=== PATIENT | male | born 1935 | race Caucasian/White ===

== ENCOUNTER 2017-02-21 16:56 | Emergency (ER) | payer OTHER ==
[2017-02-21 17:01] VITALS: BMI 26.4
[2017-02-21 18:42] LABS: BASOPHIL 1.2 % (0-2.0); EOSINOPHIL 1.7 % (0-4.5); MCH 31.7 pg (25.7-33.7); MCHC 33.6 g/dl (32.0-35.9); MEAN CELL VOLUME 94.5 fl (80-96); MEAN PLT VOLUME 9.8 fl (7.5-11.1); PLATELET COUNT 182 K/MM3 (134-434); RDW 13.2 % (11.9-15.9); WHITE BLOOD COUNT 10.1 K/mm3 (4.0-10.0)
[2017-02-21 19:03] LABS: ALBUMIN 3.8 g/dl (3.4-5.0); ALK PHOS 85 U/L (45-117); ANION GAP 7 (8-16); BILIRUBIN,TOTAL 0.6 mg/dL (0.2-1.0); CALCIUM 9.1 mg/dL (8.5-10.1); CO2 25 mmol/L (21-32); CREATININE 0.9 mg/dL (0.7-1.3); GLUCOSE,RANDOM 99 mg/dL (74-106); SGPT/ALT 27 U/L (12-78); TOT PROT 7.2 g/dl (6.4-8.2)
[2017-02-21 19:08] LABS: URINE APPEARANCE SLCLOUDY; URINE BILIRUBIN NEGATIVE (NEGATIVE); URINE COLOR YELLOW; URINE GLUCOSE (UA) NEGATIVE (NEGATIVE); URINE KETONE NEGATIVE (NEGATIVE); URINE NITRITE POSITIVE (NEGATIVE); URINE UROBILINOGEN NEGATIVE E.U./dl (0.2-1.0)
[2017-02-21 19:20] LABS: URINE BLOOD 3+ (NEGATIVE); URINE LEUK ESTERASE 3+ (NEGATIVE); URINE PROTEIN 2+ (NEGATIVE)
[2017-02-21 19:22] LABS: URINE BACTERIA RARE /hpf (NONE SEEN); URINE RBC 134 /hpf (0-3); URINE WBC 276 /hpf (3-5)
[2017-02-21 19:23] LABS: URINE HYALINE CAST 2 /lpf
[2017-02-21 19:31] LABS: SGOT/AST 32 U/L (15-37)
--- NOTE | 2017-02-21 20:04 | PDOC ---
Attending Attestation - Resident Resident Name: Ryan Shahid - ED Attending Attestation I have performed the following: I have examined & evaluated the patient, The case was reviewed & discussed with the resident, I agree w/resident's findings & plan, Exceptions are as noted - HPI HPI: 02/21/17 20:02 82 yo male wit h/o HTN prior prostate CA treated 4 yrs ago, here today with 2 days hematuria. pt states has had blood in urine stream for 2 days. sometmes has clots. drank lots of water to resolve. does have dysuria. no f/c no flank pain. no lightheaded. no other complaints. has followed with DR gusman urologist in the past at [facility], but called him today and he no longer take his insurance ( medicare). pt also see pcp dr. Spangler, and dr Salas [employer]. - Physicial Exam PE: 02/21/17 20:03 on exam pt awake alert. lungs clear. heart regular no m/r/g. abd soft nt nd. no cva tenderness. ext wwp . no edema nuero moves all ext alet oriented x 3 - Medical Decision Making 02/21/17 20:04 82 yo h/o prostate CA with hematuria. : differential uti, renal cyst, recurrent ca, anemia renal failure. plna cbc lytes ua cultures. ct a/p
[2017-02-21] MEDS ORDERED: CEFTRIAXONE 1 GM in DEXTROSE 5%-WATER - 50 ML IVPB ONE (20:05)
[2017-02-21] MEDS ORDERED: CEFTRIAXONE 50 ML ONE (20:15)
--- NOTE | 2017-02-21 20:23 | PDOC ---
*Physical Exam - Vital Signs Last Vital Signs Temp Pulse Resp BP Pulse Ox 98.0 F 101 H 20 166/100 96 02/21/17 16:57 02/21/17 16:57 02/21/17 16:57 02/21/17 16:57 02/21/17 16:57 <Mal Gilbert - Last Filed: 02/21/17 20:18> - Vital Signs Last Vital Signs Temp Pulse Resp BP Pulse Ox 98.0 F 101 H 20 166/100 96 02/21/17 16:57 02/21/17 16:57 02/21/17 16:57 02/21/17 16:57 02/21/17 16:57 <Isela Rincon - Last Filed: 02/21/17 20:32> ED Treatment Course - LABORATORY CBC & Chemistry Diagram: 02/21/17 18:18 02/21/17 18:18 - ADDITIONAL ORDERS Additional order review: Laboratory Results 02/21/17 02/21/17 18:18 18:18 Sodium 139 Potassium 4.3 Chloride 107 Carbon Dioxide 25 Anion Gap 7 L BUN 17 Creatinine 0.9 Creat Clearance w eGFR > 60 Random Glucose 99 Calcium 9.1 Total Bilirubin 0.6 AST 32 D ALT 27 Alkaline Phosphatase 85 Total Protein 7.2 Albumin 3.8 Urine Color Yellow Urine Appearance Slcloudy Urine pH 5.0 Urine Protein 2+ H Urine Glucose (UA) Negative Urine Ketones Negative Urine Blood 3+ H Urine Nitrite Positive Urine Bilirubin Negative Urine Urobilinogen Negative Ur Leukocyte Esterase 3+ H Urine RBC 134 Urine WBC 276 Ur Epithelial Cells Rare Urine Crystals Few Urine Bacteria Rare Urine Casts 2 Hyaline Casts 2 02/21/17 18:18 RBC 4.36 MCV 94.5 MCHC 33.6 RDW 13.2 MPV 9.8 Neutrophils % 66.0 Lymphocytes % 21.4 D Monocytes % 9.7 Eosinophils % 1.7 Basophils % 1.2 <Mal Gilbert - Last Filed: 02/21/17 20:18> - LABORATORY CBC & Chemistry Diagram: 02/21/17 18:18 02/21/17 18:18 - ADDITIONAL ORDERS Additional order review: Laboratory Results 02/21/17 02/21/17 18:18 18:18 Sodium 139 Potassium 4.3 Chloride 107 Carbon Dioxide 25 Anion Gap 7 L BUN 17 Creatinine 0.9 Creat Clearance w eGFR > 60 Random Glucose 99 Calcium 9.1 Total Bilirubin 0.6 AST 32 D ALT 27 Alkaline Phosphatase 85 Total Protein 7.2 Albumin 3.8 Urine Color Yellow Urine Appearance Slcloudy Urine pH 5.0 Urine Protein 2+ H Urine Glucose (UA) Negative Urine Ketones Negative Urine Blood 3+ H Urine Nitrite Positive Urine Bilirubin Negative Urine Urobilinogen Negative Ur Leukocyte Esterase 3+ H Urine RBC 134 Urine WBC 276 Ur Epithelial Cells Rare Urine Crystals Few Urine Bacteria Rare Urine Casts 2 Hyaline Casts 2 02/21/17 18:18 RBC 4.36 MCV 94.5 MCHC 33.6 RDW 13.2 MPV 9.8 Neutrophils % 66.0 Lymphocytes % 21.4 D Monocytes % 9.7 Eosinophils % 1.7 Basophils % 1.2 - RADIOLOGY Radiology Studies Ordered: Category Date Time Status ABDOMEN & PELVIS CT W/O CONTR [CT] Stat CT Scan 02/21/17 18:08 Completed <Isela Rincon - Last Filed: 02/21/17 20:32> Progress Note - Progress Note Progress Note: Received sign out from Dr. Shahid. Patient 82 year old male with a history of prostate cancer s/p radiation 3 years ago who presents with a 3 day history of hemuturia and pain on urination. Patient's UA shows leuk esterase and nitrites. Patient's CBC shows a elevated WBC to 10.3. CT abdomen shows possible cystitis. Consider antibiotic treatment and nephrology consult. <Mal Gilbert - Last Filed: 02/21/17 20:18> *DC/Admit/Observation/Transfer <Mal Gilbert - Last Filed: 02/21/17 20:18> - Discharge Dispostion Admit: No <Isela Rincon - Last Filed: 02/21/17 20:32> Diagnosis at time of Disposition: Urinary tract infection - Discharge Dispostion Disposition: HOME Condition at time of disposition: Improved - Prescriptions Prescriptions: Cephalexin [Keflex] 500 mg PO TID #21 capsule - Referrals Referrals: Clifton Yee MD., MD [Staff Physician] - - Patient Instructions Printed Discharge Instructions: Urinary Tract Infection, Blood in Urine Additional Instructions: you need to take keflex 500 mg three times daily for 7 days. return for fever, vomiting or any concern. you need to follow up with a urologist for further evaluation of your bladder, blood in urine and kidneys. call DR Yee, urologist to schedule followup. see referrl number for followup. return for any problems or concerns.
[2017-02-21 20:30] VITALS: BP 164/89; PULSE 77; TEMP 97.6
--- NOTE | 2017-02-21 20:37 | PDOC ---
History of Present Illness - General Chief Complaint: Hematuria Stated Complaint: PCP SENT/ BLOOD CLOTS Time Seen by Provider: 02/21/17 17:26 History Source: Patient Exam Limitations: No Limitations - History of Present Illness Initial Comments: 82yo male with pmh TIA on Plavix of prostate cancer s/p radiation on Flomax 3 years ago presents with 3 days of hematuria with clots and dysuria at the end of urination. Last urologist Dr. Luque - Last primary: Dr Lam. 02/21/17 20:31 Timing/Duration: other (2-3 days) Severity: mild Modifying Factors: improves with: other (symptoms less severe with hydration) Past History - Travel Traveled outside of the country in the last 30 days: No - Past Medical History Allergies/Adverse Reactions: Allergies Allergy/AdvReac Type Severity Reaction Status Date / Time No Known Drug Allergies Allergy Verified 02/21/17 17:00 Home Medications: Ambulatory Orders Atorvastatin Ca [Lipitor -] 80 mg PO ACDIN 08/03/15 Clopidogrel Bisulfate [Plavix -] 75 mg PO DAILY 08/03/15 Metoprolol Succinate [Toprol Xl] 100 mg PO ACDIN 08/03/15 Tamsulosin HCl 0.4 mg PO DAILY 08/03/15 Cephalexin [Keflex] 500 mg PO TID #21 capsule 02/21/17 Cancer: Yes (PROSTATE) Cardiac Disorders: Yes (STENT) CVA: Yes (TIA) HTN: Yes Hypercholesterolemia: Yes - Surgical History Cardiac Surgery: Yes (1 stent) Neurologic Surgery: Yes (KNEE) Orthopedic Surgery: Yes (ARTHROSCOPY LEFT) - Psycho/Social/Smoking Cessation Hx Anxiety: No Suicidal Ideation: No Smoking History: Former smoker Have you smoked in the past 12 months: No If you are a former smoker, when did you quit?: 40 YRS Information on smoking cessation initiated: No Hx Alcohol Use: No Drug/Substance Use Hx: No Substance Use Type: None *Physical Exam - Vital Signs Last Vital Signs Temp Pulse Resp BP Pulse Ox 97.6 F 77 20 164/89 96 02/21/17 20:28 02/21/17 20:28 02/21/17 20:28 02/21/17 20:28 02/21/17 16:57 - Physical Exam General Appearance: Yes: Nourished, Appropriately Dressed HEENT: positive: EOMI, DOTTIE, Normal Voice, Pharynx Normal ED Treatment Course - LABORATORY CBC & Chemistry Diagram: 02/21/17 18:18 02/21/17 18:18 - ADDITIONAL ORDERS Additional order review: Laboratory Results 02/21/17 02/21/17 18:18 18:18 Sodium 139 Potassium 4.3 Chloride 107 Carbon Dioxide 25 Anion Gap 7 L BUN 17 Creatinine 0.9 Creat Clearance w eGFR > 60 Random Glucose 99 Calcium 9.1 Total Bilirubin 0.6 AST 32 D ALT 27 Alkaline Phosphatase 85 Total Protein 7.2 Albumin 3.8 Urine Color Yellow Urine Appearance Slcloudy Urine pH 5.0 Urine Protein 2+ H Urine Glucose (UA) Negative Urine Ketones Negative Urine Blood 3+ H Urine Nitrite Positive Urine Bilirubin Negative Urine Urobilinogen Negative Ur Leukocyte Esterase 3+ H Urine RBC 134 Urine WBC 276 Ur Epithelial Cells Rare Urine Crystals Few Urine Bacteria Rare Urine Casts 2 Hyaline Casts 2 02/21/17 18:18 RBC 4.36 MCV 94.5 MCHC 33.6 RDW 13.2 MPV 9.8 Neutrophils % 66.0 Lymphocytes % 21.4 D Monocytes % 9.7 Eosinophils % 1.7 Basophils % 1.2 Medical Decision Making - Medical Decision Making 82 yo h/o prostate CA with hematuria. : cbc and electrolytes drawn, revealed increased WBC suggesting uti, Ct a/p ordered to r/o urolithiasis, revealed renal cyst, possible recurrent prostate cancer, RBC casts for possible renal failure. Patient D/C on Keflex. Advised to follow up with Urologist Dr. Yee for further evaluation of kidneys/bladder *DC/Admit/Observation/Transfer Diagnosis at time of Disposition: Urinary tract bacterial infections, UTI (urinary tract infection) - Prescriptions Prescriptions: Cephalexin [Keflex] 500 mg PO TID #21 capsule
== END 2017-02-21 20:50 | disposition home or self-care (01) ==
LOC: JER 16:56
DX: N39.0 Urinary tract infection, site not specified (principal); B96.89 Other specified bacterial agents as the cause of diseases classified elsewhere; Z86.73 Personal history of transient ischemic attack (TIA), and cerebral infarction without residual deficits; Z85.46 Personal history of malignant neoplasm of prostate; Z79.01 Long term (current) use of anticoagulants; I25.10 Atherosclerotic heart disease of native coronary artery without angina pectoris; I25.83 Coronary atherosclerosis due to lipid rich plaque; I10 Essential (primary) hypertension; Z95.5 Presence of coronary angioplasty implant and graft; E78.00 Pure hypercholesterolemia, unspecified
CPT/HCPCS: 36415; 74176-TC; 80053; 81003; 81015; 85025; 87086; 87186; 96365; 99283-25

== ENCOUNTER 2021-12-12 21:01 | Emergency (ER) | payer OTHER ==
[2021-12-12 21:13] VITALS: TEMP 97.8; BMI 27.3
[2021-12-12] MEDS ORDERED: LIDOCAINE HCL 2% JELLY 10 ML CARTRIDGE ONE ×3 (21:45→23:02)
[2021-12-12 22:40] LABS: BASO % 0.4 % (0-2.0); EOS % 0.1 % (0-4.5); HEMATOCRIT 40.2 % (35.4-49); HEMOGLOBIN 13.6 GM/dL (11.7-16.9); LYMPH % 9.3 % (8-40); MCH 31.8 pg (25.7-33.7); MCHC 33.8 g/dl (32.0-35.9); MEAN CELL VOLUME 94.2 fl (80-96); MEAN PLT VOLUME 9.1 fl (7.5-11.1); MONO % 6.9 % (3.8-10.2); NEUT % 83.3 % (42.8-82.8); PLATELET COUNT 231 10^3/uL (134-434); RBC 4.27 M/mm3 (4.00-5.60); RDW 13.2 % (11.9-15.9); WHITE BLOOD COUNT 11.5 K/mm3 (4.0-10.0)
[2021-12-12 22:46] LABS: INR 0.95 (0.83-1.09); PROTHROMBIN TIME (PATIENT) 10.9 SEC (9.7-13.0)
[2021-12-12 22:48] LABS: ACTIVATED PTT 30.3 SECONDS (25.2-36.5)
[2021-12-12 23:01] LABS: CALCIUM 9.7 mg/dL (8.5-10.1)
[2021-12-12 23:03] LABS: ALBUMIN 3.9 g/dl (3.4-5.0); BLOOD UREA NITROGEN 26.1 mg/dL (7-18)
[2021-12-12 23:06] LABS: CREATININE 1.1 mg/dL (0.55-1.3)
[2021-12-12 23:07] LABS: BILIRUBIN,TOTAL 0.5 mg/dL (0.2-1)
[2021-12-12] MEDS ORDERED: LIDOCAINE HCL 2% JELLY 10 ML CARTRIDGE UR ONE (23:13)
[2021-12-12] MEDS ORDERED: SULFAMETHOXAZOLE/TRIMETHOPRIM 800MG/160MG D.S. TABLET PO ONE (23:24)
[2021-12-12 23:35] VITALS: BP 165/115; PULSE 113
[2021-12-13] MEDS ORDERED: SULFAMETHOXAZOLE/TRIMETHOPRIM 800MG/160MG D.S. TABLET ONE (00:06)
[2021-12-13] MEDS ORDERED: CEPHALEXIN MONOHYDRATE 500 MG CAPSULE (UD) PO ONE (00:15)
[2021-12-13] MEDS ORDERED: CEPHALEXIN MONOHYDRATE 500 MG CAPSULE (UD) ONE (00:17)
== END 2021-12-13 00:56 | disposition home or self-care (01) ==
LOC: JER 21:01
DX: R33.9 Retention of urine, unspecified (principal)
CPT/HCPCS: 36415; 80053; 85025; 85610; 85730; 93005; 93010; 99284-25

== ENCOUNTER 2021-12-17 12:00 | Inpatient (IN) | payer OTHER ==
[2021-12-17] MEDS ORDERED: ACETAMINOPHEN INJECTION 100 ML IVPB ONE (13:19)
[2021-12-17] MEDS ORDERED: ACETAMINOPHEN 1000 MG/100 ML BAG IVPB ONE ×2 (13:19→22:33)
[2021-12-17 13:47] LABS: BASO % 0.8 % (0-2.0); EOS % 0.1 % (0-4.5); HEMATOCRIT 37.9 % (35.4-49); HEMOGLOBIN 12.8 GM/dL (11.7-16.9); LYMPH % 9.4 % (8-40); MCHC 33.9 g/dl (32.0-35.9); MEAN CELL VOLUME 94.4 fl (80-96); MEAN PLT VOLUME 9.7 fl (7.5-11.1); MONO % 5.8 % (3.8-10.2); NEUT % 83.9 % (42.8-82.8); PLATELET COUNT 253 10^3/uL (134-434); RBC 4.01 M/mm3 (4.00-5.60); RDW 13.1 % (11.9-15.9); WHITE BLOOD COUNT 12.5 K/mm3 (4.0-10.0)
[2021-12-17 13:53] LABS: INR 1.01 (0.83-1.09); PROTHROMBIN TIME (PATIENT) 11.6 SEC (9.7-13.0)
[2021-12-17 13:55] LABS: ACTIVATED PTT 30.6 SECONDS (25.2-36.5)
[2021-12-17 14:04] LABS: ALBUMIN 3.7 g/dl (3.4-5.0); BLOOD UREA NITROGEN 22.2 mg/dL (7-18); CALCIUM 9.8 mg/dL (8.5-10.1)
[2021-12-17 14:09] LABS: BILIRUBIN,TOTAL 0.6 mg/dL (0.2-1)
[2021-12-17 14:36] LABS: EPI CELLS 1 /uL (0-25.1); HYALINE CASTS 0 /uL (0-3.1); URINE APPEARANCE CLEAR; URINE BILIRUBIN 2+ (NEGATIVE); URINE COLOR RED; URINE GLUCOSE (UA) NEGATIVE (NEGATIVE); URINE KETONE NEGATIVE (NEGATIVE); URINE LEUK ESTERASE 1+ (NEGATIVE); URINE NITRITE POSITIVE (NEGATIVE); URINE PROTEIN 4+ (NEGATIVE); URINE UROBILINOGEN 0.2 mg/dL (0.2-1.0); URINE WBC 1 /uL (0-25.8)
[2021-12-17] MEDS ORDERED: KETOROLAC TROMETHAMINE 15 MG/ML VIAL IVPUSH ONE (15:14)
[2021-12-17] MEDS ORDERED: KETOROLAC TROMETHAMINE 15 MG/ML VIAL ONE (15:24)
[2021-12-17 15:54] LABS: URINE RBC 79.1 /uL (0-23.9); YEAST NONE SEEN (NEGATIVE)
[2021-12-17] MEDS ORDERED: CEFTRIAXONE 1 GM in DEXTROSE 5%-WATER - 50 ML IVPB ONE (16:10)
[2021-12-17] MEDS ORDERED: SODIUM CHLORIDE 1,000 ML IV SCH (16:30)
[2021-12-17] MEDS ORDERED: CEFTRIAXONE 1 GM/50 ML BAG ONE (16:50)
[2021-12-17] MEDS ORDERED: ATORVASTATIN CA 80 MG TABLET (FP) ONE (16:50)
[2021-12-17] MEDS: ATORVASTATIN CA 80 MG TABLET (FP) PO SCH (16:57)
[2021-12-17 18:15] VITALS: BMI 27.2
[2021-12-18] MEDS: LACTATED RINGERS SOLUTION 1,000 ML IV SCH ×3 (02:40→18:56)
[2021-12-18] MEDS ORDERED: ACETAMINOPHEN 1000 MG/100 ML BAG IVPB ONE (06:45)
[2021-12-18] MEDS: TAMSULOSIN HCL 0.4 MG CAP PO SCH (08:29)
[2021-12-18] MEDS: KETOROLAC TROMETHAMINE 15 MG/ML VIAL IVPUSH PRN ×2 (08:29→18:58)
[2021-12-18] MEDS ORDERED: cefTRIAXone SODIUM 1 GM VIAL ONE (09:10)
[2021-12-18] MEDS ORDERED: DEXTROSE 5%-WATER - 50 ML IVPB ONE (09:10)
[2021-12-18 09:33] LABS: BASO % 0.7 % (0-2.0); HEMATOCRIT 32.2 % (35.4-49); HEMOGLOBIN 11.2 GM/dL (11.7-16.9); LYMPH % 17.4 % (8-40); MCH 32.5 pg (25.7-33.7); MCHC 34.8 g/dl (32.0-35.9); MEAN CELL VOLUME 93.6 fl (80-96); MEAN PLT VOLUME 8.9 fl (7.5-11.1); MONO % 7.8 % (3.8-10.2); NEUT % 72.1 % (42.8-82.8); PLATELET COUNT 229 10^3/uL (134-434); RBC 3.44 M/mm3 (4.00-5.60); WHITE BLOOD COUNT 8.5 K/mm3 (4.0-10.0)
[2021-12-18] MEDS: LOSARTAN POTASSIUM 50 MG TABLET PO SCH (09:37)
[2021-12-18] MEDS: CEFTRIAXONE 1 GM in DEXTROSE 5%-WATER - 50 ML IVPB SCH (09:37)
[2021-12-18 09:56] LABS: CALCIUM 8.6 mg/dL (8.5-10.1); MAGNESIUM 1.9 mg/dL (1.8-2.4)
[2021-12-18 09:57] LABS: BLOOD UREA NITROGEN 19.2 mg/dL (7-18)
[2021-12-18 10:00] LABS: CREATININE 0.9 mg/dL (0.55-1.3); PHOSPHOROUS 2.6 mg/dL (2.5-4.9)
[2021-12-18 10:01] LABS: INR 1.04 (0.83-1.09)
[2021-12-18] MEDS: OXYBUTYNIN CHLORIDE 5 MG TABLET PO SCH (10:23)
[2021-12-18] MEDS ORDERED: ACETAMINOPHEN 325 MG TABLET (FP) PO PRN (11:38)
[2021-12-18] MEDS: ATORVASTATIN CA 80 MG TABLET (FP) PO SCH (17:29)
[2021-12-18] MEDS ORDERED: LIDOCAINE HCL 2% JELLY 10 ML CARTRIDGE UR ONE (21:43)
[2021-12-18] MEDS ORDERED: hydrOXYzine PAMOATE 25 MG CAPSULE (FP) PO ONE (23:59)
[2021-12-19] MEDS: LACTATED RINGERS SOLUTION 1,000 ML IV SCH ×2 (02:45→16:59)
[2021-12-19] MEDS: KETOROLAC TROMETHAMINE 15 MG/ML VIAL IVPUSH PRN ×2 (05:27→12:09)
[2021-12-19] MEDS ORDERED: DEXTROSE 5%-WATER - 50 ML IVPB ONE (08:56)
[2021-12-19] MEDS ORDERED: cefTRIAXone SODIUM 1 GM VIAL ONE (08:56)
[2021-12-19] MEDS: TAMSULOSIN HCL 0.4 MG CAP PO SCH (09:05)
[2021-12-19] MEDS: OXYBUTYNIN CHLORIDE 5 MG TABLET PO SCH (09:05)
[2021-12-19] MEDS: LOSARTAN POTASSIUM 50 MG TABLET PO SCH (09:05)
[2021-12-19] MEDS: CEFTRIAXONE 1 GM in DEXTROSE 5%-WATER - 50 ML IVPB SCH (09:06)
[2021-12-19] MEDS ORDERED: KETOROLAC TROMETHAMINE 15 MG/ML VIAL IVPUSH ONE (09:30)
[2021-12-19 09:32] LABS: BASO % 0.9 % (0-2.0); EOS % 1.9 % (0-4.5); HEMATOCRIT 34.8 % (35.4-49); HEMOGLOBIN 12.3 GM/dL (11.7-16.9); LYMPH % 22.3 % (8-40); MCH 32.7 pg (25.7-33.7); MCHC 35.4 g/dl (32.0-35.9); MEAN CELL VOLUME 92.4 fl (80-96); MEAN PLT VOLUME 8.8 fl (7.5-11.1); MONO % 6.8 % (3.8-10.2); NEUT % 68.1 % (42.8-82.8); PLATELET COUNT 235 10^3/uL (134-434); RBC 3.76 M/mm3 (4.00-5.60); RDW 13.1 % (11.9-15.9); WHITE BLOOD COUNT 10.3 K/mm3 (4.0-10.0)
[2021-12-19 09:39] LABS: INR 0.99 (0.83-1.09); PROTHROMBIN TIME (PATIENT) 11.4 SEC (9.7-13.0)
[2021-12-19] MEDS ORDERED: ACETAMINOPHEN 1000 MG/100 ML BAG IVPB ONE (12:07)
[2021-12-19] MEDS ORDERED: LISINOPRIL 5 MG TABLET PO ONE (12:18)
[2021-12-19] MEDS ORDERED: amLODIPine BESYLATE 5 MG TABLET (FP) PO ONE (12:20)
[2021-12-19 12:29] LABS: CALCIUM 9.3 mg/dL (8.5-10.1)
[2021-12-19 12:30] LABS: ALBUMIN 3.2 g/dl (3.4-5.0); BLOOD UREA NITROGEN 16.1 mg/dL (7-18); MAGNESIUM 2.2 mg/dL (1.8-2.4)
[2021-12-19 12:34] LABS: BILIRUBIN,TOTAL 0.5 mg/dL (0.2-1)
[2021-12-19] MEDS ORDERED: MIDAZOLAM HCL 2 MG/2 ML SINGLE DOSE VIAL ONE (13:58)
[2021-12-19] MEDS ORDERED: GENTAMICIN 80MG PREMIX BAG IVPB ONE (14:05)
[2021-12-19] MEDS ORDERED: GENTAMICIN SO4 80 MG/2 ML VIAL ONE (14:53)
[2021-12-19] MEDS ORDERED: DEXAMETHASONE SOD PHOSPHATE 4 MG/1 ML VIAL ONE (14:53)
[2021-12-19] MEDS ORDERED: LACTATED RINGERS SOLUTION 1,000 ML IV SCH (15:08)
[2021-12-19] MEDS ORDERED: ACETAMINOPHEN 325 MG TABLET (FP) PO PRN (15:08)
[2021-12-19] MEDS ORDERED: KETOROLAC TROMETHAMINE 15 MG/ML VIAL IVPUSH PRN (15:08)
[2021-12-19] MEDS ORDERED: ONDANSETRON 4 MG/2 ML VIAL IVPUSH PRN (15:11)
[2021-12-19] MEDS: ATORVASTATIN CA 80 MG TABLET (FP) PO SCH (16:33)
[2021-12-20] MEDS: LACTATED RINGERS SOLUTION 1,000 ML IV SCH (03:40)
[2021-12-20] MEDS ORDERED: DEXTROSE 5%-WATER - 50 ML IVPB ONE (09:00)
[2021-12-20] MEDS ORDERED: cefTRIAXone SODIUM 1 GM VIAL ONE (09:00)
[2021-12-20] MEDS: CEFTRIAXONE 1 GM in DEXTROSE 5%-WATER - 50 ML IVPB SCH (09:06)
[2021-12-20] MEDS: TAMSULOSIN HCL 0.4 MG CAP PO SCH (09:06)
[2021-12-20] MEDS: LOSARTAN POTASSIUM 50 MG TABLET PO SCH (09:06)
[2021-12-20] MEDS: amLODIPine BESYLATE 5 MG TABLET (FP) PO SCH (09:06)
[2021-12-20 09:13] LABS: BASO % 0.9 % (0-2.0); EOS % 3.5 % (0-4.5); HEMATOCRIT 35.7 % (35.4-49); HEMOGLOBIN 12.2 GM/dL (11.7-16.9); LYMPH % 20.4 % (8-40); MCH 31.8 pg (25.7-33.7); MCHC 34.2 g/dl (32.0-35.9); MEAN CELL VOLUME 93.1 fl (80-96); MEAN PLT VOLUME 8.8 fl (7.5-11.1); NEUT % 68.2 % (42.8-82.8); PLATELET COUNT 220 10^3/uL (134-434); RBC 3.84 M/mm3 (4.00-5.60); RDW 13.1 % (11.9-15.9); WHITE BLOOD COUNT 11.1 K/mm3 (4.0-10.0)
[2021-12-20 09:26] LABS: INR 1.01 (0.83-1.09); PROTHROMBIN TIME (PATIENT) 11.6 SEC (9.7-13.0)
[2021-12-20 09:34] LABS: BLOOD UREA NITROGEN 12.5 mg/dL (7-18); CALCIUM 9.1 mg/dL (8.5-10.1)
[2021-12-20 09:37] LABS: CREATININE 0.8 mg/dL (0.55-1.3)
[2021-12-20 09:39] LABS: BILIRUBIN,TOTAL 0.5 mg/dL (0.2-1); TOT PROT 5.9 g/dl (6.4-8.2)
[2021-12-20] MEDS ORDERED: amLODIPine BESYLATE 5 MG TABLET (FP) PO SCH (10:00)
[2021-12-20] MEDS ORDERED: LISINOPRIL 5 MG TABLET PO SCH (10:00)
[2021-12-20] MEDS: ATORVASTATIN CA 80 MG TABLET (FP) PO SCH (17:01)
[2021-12-21] MEDS ORDERED: BISACODYL 10 MG SUPP.RECT PR ONE (07:51)
[2021-12-21 08:10] LABS: BASO % 0.5 % (0-2.0); EOS % 3.7 % (0-4.5); HEMOGLOBIN 11.9 GM/dL (11.7-16.9); LYMPH % 19.9 % (8-40); MCH 32.3 pg (25.7-33.7); MCHC 34.9 g/dl (32.0-35.9); MEAN CELL VOLUME 92.5 fl (80-96); MEAN PLT VOLUME 8.9 fl (7.5-11.1); MONO % 9.1 % (3.8-10.2); NEUT % 66.8 % (42.8-82.8); PLATELET COUNT 243 10^3/uL (134-434); RBC 3.68 M/mm3 (4.00-5.60); WHITE BLOOD COUNT 10.3 K/mm3 (4.0-10.0)
[2021-12-21 08:17] LABS: ALBUMIN 2.9 g/dl (3.4-5.0); BLOOD UREA NITROGEN 11.5 mg/dL (7-18); CALCIUM 9.2 mg/dL (8.5-10.1); MAGNESIUM 2.1 mg/dL (1.8-2.4)
[2021-12-21 08:20] LABS: CREATININE 0.8 mg/dL (0.55-1.3)
[2021-12-21 08:22] LABS: BILIRUBIN,TOTAL 0.4 mg/dL (0.2-1); TOT PROT 5.7 g/dl (6.4-8.2)
[2021-12-21 08:27] LABS: INR 1.06 (0.83-1.09); PROTHROMBIN TIME (PATIENT) 12.2 SEC (9.7-13.0)
[2021-12-21 08:29] VITALS: TEMP 98.3
[2021-12-21] MEDS: TAMSULOSIN HCL 0.4 MG CAP PO SCH (08:29)
[2021-12-21] MEDS ORDERED: DEXTROSE 5%-WATER - 50 ML IVPB ONE (09:11)
[2021-12-21] MEDS ORDERED: cefTRIAXone SODIUM 1 GM VIAL ONE (09:11)
[2021-12-21] MEDS: LOSARTAN POTASSIUM 50 MG TABLET PO SCH (09:16)
[2021-12-21] MEDS: CEFTRIAXONE 1 GM in DEXTROSE 5%-WATER - 50 ML IVPB SCH (09:16)
[2021-12-21] MEDS: amLODIPine BESYLATE 5 MG TABLET (FP) PO SCH (09:16)
[2021-12-21] MEDS ORDERED: POLYETHYLENE GLYCOL (HEALTHYLAX) 3350 17 GM PACKET PO SCH (10:00)
[2021-12-21] MEDS ORDERED: LACTULOSE 20 GM/30 ML UDC (FOR ORAL USE ONLY) PO ONE (12:31)
[2021-12-21 14:51] VITALS: BP 104/62; PULSE 82
== END 2021-12-21 16:29 | disposition home health service (06) | DRG 713 ==
LOC: JER 12:00 → JERBED 15:04 → INTOOBSV 15:04 → OBSVTOIN 15:04 → J6S 18:11
PROVIDERS: ADMIT Family Medicine; ATTEND Nurse Practitioner Acute Care
PROC: 0T5C8ZZ Destruction of Bladder Neck, Via Natural or Artificial Opening Endoscopic (ICD-10-PCS; 2021-12-19)
PROC: 3E1K88Z Irrigation of Genitourinary Tract using Irrigating Substance, Via Natural or Artificial Opening Endoscopic (ICD-10-PCS; 2021-12-19)
PROC: 0VB08ZZ Excision of Prostate, Via Natural or Artificial Opening Endoscopic (ICD-10-PCS; principal; 2021-12-19 12:00)
PROC: 0TBC8ZZ Excision of Bladder Neck, Via Natural or Artificial Opening Endoscopic (ICD-10-PCS; 2021-12-19 12:00)
DX: C61 Malignant neoplasm of prostate (principal); N39.0 Urinary tract infection, site not specified; N40.1 Benign prostatic hyperplasia with lower urinary tract symptoms; R33.8 Other retention of urine; R31.0 Gross hematuria; D49.4 Neoplasm of unspecified behavior of bladder; I10 Essential (primary) hypertension; E78.5 Hyperlipidemia, unspecified; N35.812 Other bulbous urethral stricture, male; Z95.5 Presence of coronary angioplasty implant and graft; Z86.73 Personal history of transient ischemic attack (TIA), and cerebral infarction without residual deficits; Z85.46 Personal history of malignant neoplasm of prostate
CPT/HCPCS: 36415; 80048; 80053; 81003; 83735; 84100; 84153; 85025; 85610; 85730; 86850; 86900; 86901; 87086; 88305-TC; 93005; 93010; 94760; 97116-GP; 97161-GP; 99285-25; C9803-CS; U0003; U0005

== ENCOUNTER 2022-02-09 18:16 | Inpatient (IN) | payer OTHER ==
[2022-02-09] MEDS ORDERED: ACETAMINOPHEN 1000 MG/100 ML BAG IVPB ONE (19:45)
[2022-02-09] MEDS ORDERED: LIDOCAINE HCL 2% JELLY 10 ML CARTRIDGE UR ONE (19:45)
[2022-02-09] MEDS ORDERED: LIDOCAINE HCL 2% JELLY 10 ML CARTRIDGE ONE (19:49)
[2022-02-09] MEDS ORDERED: ACETAMINOPHEN INJECTION 100 ML IVPB ONE (20:12)
[2022-02-09 20:43] LABS: BASO % 0.3 % (0-2.0); EOS % 0.1 % (0-4.5); HEMATOCRIT 34.4 % (35.4-49); HEMOGLOBIN 11.9 GM/dL (11.7-16.9); LYMPH % 6.7 % (8-40); MCHC 34.5 g/dl (32.0-35.9); MEAN CELL VOLUME 92.8 fl (80-96); MEAN PLT VOLUME 8.6 fl (7.5-11.1); MONO % 6.4 % (3.8-10.2); NEUT % 86.5 % (42.8-82.8); PLATELET COUNT 230 10^3/uL (134-434); RDW 12.9 % (11.9-15.9); WHITE BLOOD COUNT 13.8 K/mm3 (4.0-10.0)
[2022-02-09 20:47] LABS: EPI CELLS 25 /uL (0-25.1); HYALINE CASTS 30 /uL (0-3.1); URINE APPEARANCE TURBID; URINE BILIRUBIN 3+ (NEGATIVE); URINE COLOR RED; URINE GLUCOSE (UA) NEGATIVE (NEGATIVE); URINE KETONE NEGATIVE (NEGATIVE); URINE LEUK ESTERASE 2+ (NEGATIVE); URINE NITRITE POSITIVE (NEGATIVE); URINE PROTEIN 3+ (NEGATIVE); URINE RBC 44347 /uL (0-23.9); URINE UROBILINOGEN 0.2 mg/dL (0.2-1.0); URINE WBC 174 /uL (0-25.8)
[2022-02-09] MEDS ORDERED: TAMSULOSIN HCL 0.4 MG CAP PO ONE (21:07)
[2022-02-09] MEDS ORDERED: FINASTERIDE 5 MG TABLET (FP) PO ONE (21:07)
[2022-02-09 21:08] LABS: ALBUMIN 3.7 g/dl (3.4-5.0); CALCIUM 9.1 mg/dL (8.5-10.1)
[2022-02-09] MEDS ORDERED: CEFTRIAXONE 1 GM in DEXTROSE 5%-WATER - 100 ML IVPB ONE (21:08)
[2022-02-09 21:13] LABS: BILIRUBIN,TOTAL 0.6 mg/dL (0.2-1); TOT PROT 6.3 g/dl (6.4-8.2)
[2022-02-09 21:15] LABS: INR 1.03 (0.83-1.09); PROTHROMBIN TIME (PATIENT) 11.8 SEC (9.7-13.0)
[2022-02-09] MEDS ORDERED: CEFTRIAXONE 1 GM/50 ML BAG ONE (21:51)
[2022-02-09] MEDS ORDERED: TAMSULOSIN HCL 0.4 MG CAP ONE (21:51)
[2022-02-09] MEDS ORDERED: ACETAMINOPHEN 1000 MG/100 ML BAG IVPB PRN (22:13)
[2022-02-09] MEDS ORDERED: SODIUM CHLORIDE 500 ML IV STA (22:56)
[2022-02-10 02:20] LABS: CALCIUM 9.2 mg/dL (8.5-10.1)
[2022-02-10 02:21] LABS: ALBUMIN 3.6 g/dl (3.4-5.0); BLOOD UREA NITROGEN 19.2 mg/dL (7-18)
[2022-02-10 02:25] LABS: BILIRUBIN,TOTAL 0.5 mg/dL (0.2-1)
[2022-02-10 02:26] LABS: TOT PROT 6.6 g/dl (6.4-8.2)
[2022-02-10] MEDS ORDERED: DEXTROSE 5%-WATER - 50 ML IVPB ONE ×4 (02:56→17:15)
[2022-02-10] MEDS ORDERED: PIPERACILLIN/TAZOBACTAM 3.375 GM VIAL IVPB ONE ×4 (02:56→17:14)
[2022-02-10] MEDS: PIPERACILLIN/TAZOB 3.375 GM 3.375 GM in DEXTROSE 5%-WATER - 50 ML IVPB SCH ×6 (03:06→17:17)
[2022-02-10 06:09] VITALS: BMI 25.8
[2022-02-10] MEDS: amLODIPine BESYLATE 5 MG TABLET (FP) PO SCH (10:59)
[2022-02-10] MEDS: LOSARTAN POTASSIUM 50 MG TABLET PO SCH (10:59)
[2022-02-10] MEDS: POLYETHYLENE GLYCOL (HEALTHYLAX) 3350 17 GM PACKET PO SCH (10:59)
[2022-02-10] MEDS: TAMSULOSIN HCL 0.4 MG CAP PO SCH (10:59)
[2022-02-10 11:02] LABS: BASO % 0.3 % (0-2.0); EOS % 0.5 % (0-4.5); HEMATOCRIT 34.8 % (35.4-49); LYMPH % 6.7 % (8-40); MCH 31.9 pg (25.7-33.7); MCHC 34.3 g/dl (32.0-35.9); MEAN CELL VOLUME 92.9 fl (80-96); MONO % 6.7 % (3.8-10.2); NEUT % 85.8 % (42.8-82.8); PLATELET COUNT 238 10^3/uL (134-434); RBC 3.75 M/mm3 (4.00-5.60); RDW 13.2 % (11.9-15.9); WHITE BLOOD COUNT 10.8 K/mm3 (4.0-10.0)
[2022-02-10 11:27] LABS: ALBUMIN 3.3 g/dl (3.4-5.0); BLOOD UREA NITROGEN 16.1 mg/dL (7-18)
[2022-02-10 11:29] LABS: CALCIUM 9.3 mg/dL (8.5-10.1)
[2022-02-10 11:30] LABS: BILIRUBIN,TOTAL 0.5 mg/dL (0.2-1)
[2022-02-10 11:33] LABS: PHOSPHOROUS 2.6 mg/dL (2.5-4.9)
[2022-02-10] MEDS ORDERED: TAMSULOSIN HCL 0.4 MG CAP PO SCH (22:00)
[2022-02-10] MEDS: ATORVASTATIN CA 80 MG TABLET (FP) PO SCH (22:17)
[2022-02-11] MEDS: POLYETHYLENE GLYCOL (HEALTHYLAX) 3350 17 GM PACKET PO SCH (09:40)
[2022-02-11] MEDS: LOSARTAN POTASSIUM 50 MG TABLET PO SCH (09:41)
[2022-02-11] MEDS: TAMSULOSIN HCL 0.4 MG CAP PO SCH (09:41)
[2022-02-11] MEDS: amLODIPine BESYLATE 5 MG TABLET (FP) PO SCH (09:42)
[2022-02-11] MEDS: ATORVASTATIN CA 80 MG TABLET (FP) PO SCH (21:33)
[2022-02-12] MEDS ORDERED: CEFTRIAXONE 1,000 MG in DEXTROSE 5%-WATER - 50 ML IVPB SCH (10:00)
[2022-02-12] MEDS: TAMSULOSIN HCL 0.4 MG CAP PO SCH (10:48)
[2022-02-12] MEDS: LOSARTAN POTASSIUM 50 MG TABLET PO SCH (10:48)
[2022-02-12] MEDS: POLYETHYLENE GLYCOL (HEALTHYLAX) 3350 17 GM PACKET PO SCH (10:48)
[2022-02-12] MEDS ORDERED: DEXTROSE 5%-WATER - 50 ML IVPB ONE (12:40)
[2022-02-12] MEDS ORDERED: cefTRIAXone SODIUM 1 GM VIAL ONE (12:40)
[2022-02-12] MEDS: CEFTRIAXONE 1 GM in DEXTROSE 5%-WATER - 50 ML IVPB SCH (12:42)
[2022-02-12] MEDS: ATORVASTATIN CA 80 MG TABLET (FP) PO SCH (21:41)
[2022-02-13] MEDS ORDERED: DEXTROSE 5%-WATER - 50 ML IVPB ONE (09:18)
[2022-02-13] MEDS ORDERED: cefTRIAXone SODIUM 1 GM VIAL ONE (09:18)
[2022-02-13] MEDS: CEFTRIAXONE 1 GM in DEXTROSE 5%-WATER - 50 ML IVPB SCH (09:36)
[2022-02-13] MEDS: TAMSULOSIN HCL 0.4 MG CAP PO SCH (09:36)
[2022-02-13] MEDS: LOSARTAN POTASSIUM 50 MG TABLET PO SCH (09:36)
[2022-02-13] MEDS: POLYETHYLENE GLYCOL (HEALTHYLAX) 3350 17 GM PACKET PO SCH (09:36)
[2022-02-13 09:52] LABS: BASO % 0.7 % (0-2.0); EOS % 3.5 % (0-4.5); HEMATOCRIT 36.6 % (35.4-49); HEMOGLOBIN 12.4 GM/dL (11.7-16.9); LYMPH % 18.6 % (8-40); MCHC 33.9 g/dl (32.0-35.9); MEAN CELL VOLUME 94.3 fl (80-96); MONO % 6.5 % (3.8-10.2); NEUT % 70.7 % (42.8-82.8); PLATELET COUNT 263 10^3/uL (134-434); RBC 3.88 M/mm3 (4.00-5.60); RDW 13.2 % (11.9-15.9); WHITE BLOOD COUNT 13.3 K/mm3 (4.0-10.0)
[2022-02-13 10:06] LABS: ALBUMIN 3.3 g/dl (3.4-5.0); CALCIUM 9.2 mg/dL (8.5-10.1)
[2022-02-13 10:11] LABS: BILIRUBIN,TOTAL 0.5 mg/dL (0.2-1); TOT PROT 6.5 g/dl (6.4-8.2)
[2022-02-13] MEDS: metoPROLOL SUCCINATE 25 MG TAB.SR.24H (FP) PO SCH (17:47)
[2022-02-13] MEDS: ATORVASTATIN CA 80 MG TABLET (FP) PO SCH (22:25)
[2022-02-14] MEDS: TAMSULOSIN HCL 0.4 MG CAP PO SCH (08:17)
[2022-02-14 09:31] LABS: BASO % 0.9 % (0-2.0); EOS % 3.8 % (0-4.5); HEMATOCRIT 34.8 % (35.4-49); HEMOGLOBIN 11.9 GM/dL (11.7-16.9); LYMPH % 20.2 % (8-40); MCH 32.1 pg (25.7-33.7); MCHC 34.2 g/dl (32.0-35.9); MEAN CELL VOLUME 93.9 fl (80-96); MEAN PLT VOLUME 9.1 fl (7.5-11.1); MONO % 8.9 % (3.8-10.2); NEUT % 66.2 % (42.8-82.8); PLATELET COUNT 248 10^3/uL (134-434); RBC 3.71 M/mm3 (4.00-5.60); RDW 13.5 % (11.9-15.9); WHITE BLOOD COUNT 10.9 K/mm3 (4.0-10.0)
[2022-02-14] MEDS: LOSARTAN POTASSIUM 50 MG TABLET PO SCH (09:37)
[2022-02-14] MEDS: POLYETHYLENE GLYCOL (HEALTHYLAX) 3350 17 GM PACKET PO SCH (09:38)
[2022-02-14] MEDS: metoPROLOL SUCCINATE 25 MG TAB.SR.24H (FP) PO SCH (09:38)
[2022-02-14 09:55] LABS: ALBUMIN 3.2 g/dl (3.4-5.0); CALCIUM 9.3 mg/dL (8.5-10.1)
[2022-02-14 09:56] LABS: BLOOD UREA NITROGEN 18.4 mg/dL (7-18)
[2022-02-14 10:00] LABS: BILIRUBIN,TOTAL 0.5 mg/dL (0.2-1); TOT PROT 6.4 g/dl (6.4-8.2)
[2022-02-14 10:10] VITALS: BP 138/72; PULSE 93; TEMP 98.6
== END 2022-02-14 13:43 | disposition home or self-care (01) | DRG 687 ==
LOC: JER 18:16 → JERBED 20:04 → J5S 02-10 02:52
PROVIDERS: ADMIT Hospitalist
DX: C79.11 Secondary malignant neoplasm of bladder (principal); N39.0 Urinary tract infection, site not specified; R31.0 Gross hematuria; R33.9 Retention of urine, unspecified; Z85.46 Personal history of malignant neoplasm of prostate; N13.9 Obstructive and reflux uropathy, unspecified; N40.1 Benign prostatic hyperplasia with lower urinary tract symptoms; I10 Essential (primary) hypertension; E78.5 Hyperlipidemia, unspecified; D72.829 Elevated white blood cell count, unspecified
CPT/HCPCS: 0241U-QW; 36415; 71046-TC-FY; 80053; 81003; 82962; 83735; 84100; 85025; 85610; 85730; 86850; 86900; 86901; 87086; 93005; 93010; 97116-GP; 97161-GP; 99285-25

== ENCOUNTER 2022-02-21 14:31 | Inpatient (IN) | payer OTHER ==
[2022-02-21 15:28] VITALS: BMI 26.1
[2022-02-21 19:43] LABS: BASO % 1.1 % (0-2.0); EOS % 1.8 % (0-4.5); HEMATOCRIT 28.8 % (35.4-49); HEMOGLOBIN 9.8 GM/dL (11.7-16.9); LYMPH % 23.5 % (8-40); MCH 31.9 pg (25.7-33.7); MCHC 34.2 g/dl (32.0-35.9); MEAN CELL VOLUME 93.3 fl (80-96); MEAN PLT VOLUME 8.4 fl (7.5-11.1); MONO % 7.8 % (3.8-10.2); NEUT % 65.8 % (42.8-82.8); PLATELET COUNT 310 10^3/uL (134-434); RBC 3.09 M/mm3 (4.00-5.60); RDW 13.4 % (11.9-15.9)
[2022-02-21 19:55] LABS: PROTHROMBIN TIME (PATIENT) 11.5 SEC (9.7-13.0)
[2022-02-21 20:03] LABS: CALCIUM 9.2 mg/dL (8.5-10.1)
[2022-02-21 20:04] LABS: ALBUMIN 3.6 g/dl (3.4-5.0); BLOOD UREA NITROGEN 26.6 mg/dL (7-18)
[2022-02-21 20:07] LABS: CREATININE 1.2 mg/dL (0.55-1.3)
[2022-02-21 20:08] LABS: TOT PROT 6.4 g/dl (6.4-8.2)
[2022-02-21 20:09] LABS: BILIRUBIN,TOTAL 0.3 mg/dL (0.2-1)
[2022-02-21 21:11] LABS: EPI CELLS 2 /uL (0-25.1); HYALINE CASTS 8 /uL (0-3.1); URINE APPEARANCE TURBID; URINE BILIRUBIN 2+ (NEGATIVE); URINE COLOR RED; URINE GLUCOSE (UA) NEGATIVE (NEGATIVE); URINE KETONE NEGATIVE (NEGATIVE); URINE LEUK ESTERASE 2+ (NEGATIVE); URINE NITRITE POSITIVE (NEGATIVE); URINE PROTEIN 3+ (NEGATIVE); URINE RBC 2672 /uL (0-23.9); URINE UROBILINOGEN 0.2 mg/dL (0.2-1.0); URINE WBC 4 /uL (0-25.8)
[2022-02-21 23:33] LABS: URINE BACTERIA 1.3 /uL (0-1359)
[2022-02-22 02:03] LABS: RETICULOCYTES 2.32 % (0.5-1.5)
[2022-02-22] MEDS ORDERED: TAMSULOSIN HCL 0.4 MG CAP PO SCH (08:30)
[2022-02-22 08:39] LABS: BASO % 0.5 % (0-2.0); EOS % 1.3 % (0-4.5); HEMATOCRIT 28.6 % (35.4-49); HEMOGLOBIN 9.8 GM/dL (11.7-16.9); LYMPH % 12.2 % (8-40); MCH 31.9 pg (25.7-33.7); MCHC 34.1 g/dl (32.0-35.9); MEAN CELL VOLUME 93.5 fl (80-96); MEAN PLT VOLUME 8.4 fl (7.5-11.1); MONO % 7.1 % (3.8-10.2); NEUT % 78.9 % (42.8-82.8); PLATELET COUNT 285 10^3/uL (134-434); RBC 3.06 M/mm3 (4.00-5.60); WHITE BLOOD COUNT 14.6 K/mm3 (4.0-10.0)
[2022-02-22 08:45] LABS: INR 1.01 (0.83-1.09); PROTHROMBIN TIME (PATIENT) 11.6 SEC (9.7-13.0)
[2022-02-22 09:04] LABS: ALBUMIN 3.3 g/dl (3.4-5.0); BLOOD UREA NITROGEN 21.1 mg/dL (7-18); CALCIUM 9.1 mg/dL (8.5-10.1); MAGNESIUM 2.2 mg/dL (1.8-2.4)
[2022-02-22 09:07] LABS: PHOSPHOROUS 2.7 mg/dL (2.5-4.9)
[2022-02-22 09:09] LABS: BILIRUBIN,TOTAL 0.5 mg/dL (0.2-1); TOT PROT 6.1 g/dl (6.4-8.2)
[2022-02-22] MEDS ORDERED: metoPROLOL SUCCINATE 25 MG TAB.SR.24H (FP) PO SCH (10:00)
[2022-02-22] MEDS ORDERED: APALUTAMIDE 60 MG PO SCH (10:00)
[2022-02-22] MEDS ORDERED: LOSARTAN POTASSIUM 50 MG TABLET PO SCH (10:00)
[2022-02-22] MEDS ORDERED: PNEUMOC 20-VAL CONJ-DIP CRM/PF 0.5 ML SYRINGE IM ONE (10:00)
[2022-02-22] MEDS ORDERED: cefTRIAXone SODIUM 1 GM VIAL ONE (10:52)
[2022-02-22] MEDS ORDERED: DEXTROSE 5%-WATER - 50 ML IVPB ONE (10:52)
[2022-02-22] MEDS ORDERED: CEFTRIAXONE 1 GM in DEXTROSE 5%-WATER - 50 ML IVPB SCH (11:00)
[2022-02-22] MEDS ORDERED: LACTATED RINGERS SOLUTION 1,000 ML/1,000 ML INFUS.BAG IV SCH (12:15)
[2022-02-22] MEDS ORDERED: MIDAZOLAM HCL 2 MG/2 ML SINGLE DOSE VIAL ONE (15:26)
[2022-02-22] MEDS ORDERED: GENTAMICIN SO4 80 MG/2 ML VIAL IVPB ONE (15:30)
[2022-02-22] MEDS ORDERED: KETOROLAC TROMETHAMINE 30 MG/1 ML VIAL ONE (16:48)
[2022-02-22] MEDS ORDERED: DEXAMETHASONE SOD PHOSPHATE 4 MG/1 ML VIAL ONE (16:48)
[2022-02-22] MEDS: LACTATED RINGERS SOLUTION 1,000 ML/1,000 ML INFUS.BAG IV SCH (17:45)
[2022-02-22] MEDS ORDERED: ACETAMINOPHEN 1000 MG/100 ML BAG IVPB PRN (18:11)
[2022-02-22] MEDS: ATORVASTATIN CA 80 MG TABLET (FP) PO SCH (21:43)
[2022-02-22] MEDS ORDERED: ATORVASTATIN CA 80 MG TABLET (FP) PO SCH (22:00)
[2022-02-23 07:10] LABS: HEMATOCRIT 28.5 % (35.4-49); HEMOGLOBIN 9.8 GM/dL (11.7-16.9); MCHC 34.4 g/dl (32.0-35.9); MEAN CELL VOLUME 93.1 fl (80-96); MEAN PLT VOLUME 8.5 fl (7.5-11.1); PLATELET COUNT 288 10^3/uL (134-434); RBC 3.06 M/mm3 (4.00-5.60); RDW 13.1 % (11.9-15.9); WHITE BLOOD COUNT 11.2 K/mm3 (4.0-10.0)
[2022-02-23 07:11] LABS: BASO % 0.5 % (0-2.0); EOS % 2.1 % (0-4.5); HEMATOCRIT 28.7 % (35.4-49); HEMOGLOBIN 9.8 GM/dL (11.7-16.9); LYMPH % 17.1 % (8-40); MCH 31.7 pg (25.7-33.7); MCHC 34.1 g/dl (32.0-35.9); MEAN CELL VOLUME 93.1 fl (80-96); MEAN PLT VOLUME 8.3 fl (7.5-11.1); MONO % 8.1 % (3.8-10.2); NEUT % 72.2 % (42.8-82.8); PLATELET COUNT 289 10^3/uL (134-434); RBC 3.08 M/mm3 (4.00-5.60); RDW 13.1 % (11.9-15.9); WHITE BLOOD COUNT 11.6 K/mm3 (4.0-10.0)
[2022-02-23 07:31] LABS: ALBUMIN 3.1 g/dl (3.4-5.0); CALCIUM 9.2 mg/dL (8.5-10.1)
[2022-02-23 07:32] LABS: MAGNESIUM 2.1 mg/dL (1.8-2.4)
[2022-02-23 07:35] LABS: PHOSPHOROUS 2.9 mg/dL (2.5-4.9)
[2022-02-23 07:36] LABS: BILIRUBIN,TOTAL 0.4 mg/dL (0.2-1); TOT PROT 5.8 g/dl (6.4-8.2)
[2022-02-23] MEDS: TAMSULOSIN HCL 0.4 MG CAP PO SCH (08:31)
[2022-02-23] MEDS ORDERED: cefTRIAXone SODIUM 1 GM VIAL ONE (09:24)
[2022-02-23] MEDS ORDERED: DEXTROSE 5%-WATER - 50 ML IVPB ONE (09:24)
[2022-02-23] MEDS: LOSARTAN POTASSIUM 50 MG TABLET PO SCH (09:31)
[2022-02-23] MEDS: metoPROLOL SUCCINATE 25 MG TAB.SR.24H (FP) PO SCH (09:31)
[2022-02-23] MEDS: CEFTRIAXONE 1 GM in DEXTROSE 5%-WATER - 50 ML IVPB SCH (09:31)
[2022-02-23] MEDS ORDERED: APALUTAMIDE 60 MG PO SCH (10:00)
[2022-02-23] MEDS: LACTATED RINGERS SOLUTION 1,000 ML/1,000 ML INFUS.BAG IV SCH (15:42)
[2022-02-23] MEDS: ATORVASTATIN CA 80 MG TABLET (FP) PO SCH (21:34)
[2022-02-24] MEDS ORDERED: cefTRIAXone SODIUM 1 GM VIAL ONE (08:58)
[2022-02-24] MEDS ORDERED: DEXTROSE 5%-WATER - 50 ML IVPB ONE (08:58)
[2022-02-24] MEDS: CEFTRIAXONE 1 GM in DEXTROSE 5%-WATER - 50 ML IVPB SCH (09:03)
[2022-02-24] MEDS: TAMSULOSIN HCL 0.4 MG CAP PO SCH (09:03)
[2022-02-24] MEDS: LOSARTAN POTASSIUM 50 MG TABLET PO SCH (09:03)
[2022-02-24] MEDS: metoPROLOL SUCCINATE 25 MG TAB.SR.24H (FP) PO SCH (09:04)
[2022-02-24 15:05] VITALS: BP 109/59; PULSE 79; TEMP 97.9
== END 2022-02-24 16:11 | disposition home or self-care (01) | DRG 670 ==
LOC: JOR 14:31 → JERBED 20:23 → J6S 02-22 06:51
PROVIDERS: ADMIT Internal Medicine
PROC: 0TBB8ZZ Excision of Bladder, Via Natural or Artificial Opening Endoscopic (ICD-10-PCS; principal; 2022-02-22 15:30)
DX: C79.11 Secondary malignant neoplasm of bladder (principal); I25.10 Atherosclerotic heart disease of native coronary artery without angina pectoris; I10 Essential (primary) hypertension; R31.0 Gross hematuria; C61 Malignant neoplasm of prostate; D64.9 Anemia, unspecified; R33.8 Other retention of urine; E78.5 Hyperlipidemia, unspecified
CPT/HCPCS: 36415; 71045-TC-FY; 80048; 80053; 81003; 82728; 83540; 83550; 83615; 83735; 84100; 85025; 85027; 85045; 85610; 85730; 86850; 86900; 86901; 88305-TC; 93005; 93010; 94760; 97116-GP; 97162-GP; 99285-25; C9803-CS; U0003; U0005

== ENCOUNTER 2022-04-13 13:14 | Inpatient (IN) | payer OTHER ==
[2022-04-13] MEDS ORDERED: LIDOCAINE HCL 2% JELLY 10 ML CARTRIDGE UR ONE (14:21)
[2022-04-13] MEDS ORDERED: LIDOCAINE HCL 2% JELLY 10 ML CARTRIDGE ONE (14:26)
[2022-04-13 17:14] LABS: ALBUMIN 3.7 g/dl (3.4-5.0); BLOOD UREA NITROGEN 26.8 mg/dL (7-18); CALCIUM 9.5 mg/dL (8.5-10.1)
[2022-04-13 17:16] LABS: CREATININE 1.2 mg/dL (0.55-1.3)
[2022-04-13 17:18] LABS: BILIRUBIN,TOTAL 0.6 mg/dL (0.2-1); TOT PROT 7.1 g/dl (6.4-8.2)
[2022-04-13 17:20] LABS: URINE APPEARANCE TURBID; URINE BILIRUBIN NEGATIVE (NEGATIVE); URINE COLOR RED; URINE GLUCOSE (UA) NEGATIVE (NEGATIVE)
[2022-04-13 17:21] LABS: URINE PROTEIN 4+ (NEGATIVE); URINE UROBILINOGEN 0.2 mg/dL (0.2-1.0)
[2022-04-13 17:26] LABS: URINE RBC 2099 /uL (0-23.9)
[2022-04-13 17:27] LABS: EPI CELLS 0.3 /uL (0-25.1); HYALINE CASTS 2.51 /uL (0-3.1); URINE BACTERIA 25.6 /uL (0-1359)
[2022-04-13 18:18] LABS: BASO % 0.4 % (0-2.0); EOS % 0.1 % (0-4.5); HEMATOCRIT 33.5 % (35.4-49); HEMOGLOBIN 11.3 GM/dL (11.7-16.9); LYMPH % 6.9 % (8-40); MCH 31.8 pg (25.7-33.7); MCHC 33.7 g/dl (32.0-35.9); MEAN CELL VOLUME 94.2 fl (80-96); MEAN PLT VOLUME 8.9 fl (7.5-11.1); NEUT % 86.6 % (42.8-82.8); PLATELET COUNT 211 10^3/uL (134-434); RBC 3.56 M/mm3 (4.00-5.60); RDW 14.5 % (11.9-15.9); WHITE BLOOD COUNT 11.5 K/mm3 (4.0-10.0)
[2022-04-13 18:31] LABS: CALCIUM 9.5 mg/dL (8.5-10.1)
[2022-04-13 18:32] LABS: ALBUMIN 3.8 g/dl (3.4-5.0); BLOOD UREA NITROGEN 24.3 mg/dL (7-18)
[2022-04-13 18:36] LABS: BILIRUBIN,TOTAL 0.4 mg/dL (0.2-1)
[2022-04-13 18:37] LABS: TOT PROT 6.8 g/dl (6.4-8.2)
[2022-04-13 19:56] VITALS: BMI 28.8
[2022-04-13] MEDS: metoPROLOL SUCCINATE 25 MG TAB.SR.24H (FP) PO SCH (22:41)
[2022-04-13] MEDS: LOSARTAN POTASSIUM 50 MG TABLET PO SCH (22:41)
[2022-04-14] MEDS ORDERED: ACETAMINOPHEN 1000 MG/100 ML BAG IVPB PRN ×3 (08:31→16:36)
[2022-04-14] MEDS ORDERED: ACETAMINOPHEN 325 MG TABLET (FP) PO PRN (08:32)
[2022-04-14] MEDS: TAMSULOSIN HCL 0.4 MG CAP PO SCH ×2 (09:13→09:26)
[2022-04-14] MEDS: LOSARTAN POTASSIUM 50 MG TABLET PO SCH (09:26)
[2022-04-14] MEDS: metoPROLOL SUCCINATE 25 MG TAB.SR.24H (FP) PO SCH (09:26)
[2022-04-14] MEDS ORDERED: TAMSULOSIN HCL 0.4 MG CAP PO SCH (09:32)
[2022-04-14 09:45] LABS: BASO % 0.3 % (0-2.0); EOS % 0.1 % (0-4.5); HEMATOCRIT 33.8 % (35.4-49); HEMOGLOBIN 11.4 GM/dL (11.7-16.9); LYMPH % 18.2 % (8-40); MCH 31.2 pg (25.7-33.7); MCHC 33.6 g/dl (32.0-35.9); MEAN CELL VOLUME 92.9 fl (80-96); MEAN PLT VOLUME 9.6 fl (7.5-11.1); MONO % 7.7 % (3.8-10.2); NEUT % 73.7 % (42.8-82.8); PLATELET COUNT 279 10^3/uL (134-434); RBC 3.64 M/mm3 (4.00-5.60); RDW 14.2 % (11.9-15.9); WHITE BLOOD COUNT 13.6 K/mm3 (4.0-10.0)
[2022-04-14] MEDS ORDERED: SODIUM CHLORIDE 0.45% 1,000 ML IV SCH ×2 (09:45→13:31)
[2022-04-14 09:50] LABS: INR 1.03 (0.83-1.09); PROTHROMBIN TIME (PATIENT) 11.9 SEC (9.7-13.0)
[2022-04-14 09:52] LABS: ACTIVATED PTT 28.7 SECONDS (25.2-36.5)
[2022-04-14] MEDS ORDERED: CEFTRIAXONE 1 MG in DEXTROSE 5%-WATER - 50 ML IVPB SCH (10:00)
[2022-04-14] MEDS ORDERED: CEFTRIAXONE 1 GM in DEXTROSE 5%-WATER 100 ML IVPB SCH (10:00)
[2022-04-14] MEDS ORDERED: ONDANSETRON 4 MG/2 ML VIAL IVPUSH PRN ×2 (11:21→13:31)
[2022-04-14] MEDS ORDERED: LIDOCAINE HCL/PF 2% SDV 5ML VIAL ONE (11:27)
[2022-04-14] MEDS ORDERED: ETOMIDATE 20 MG/10 ML AMPUL IVPUSH ONE (11:27)
[2022-04-14] MEDS ORDERED: PROPOFOL 20 ML ONE (11:29)
[2022-04-14] MEDS ORDERED: LACTATED RINGERS SOLUTION 1,000 ML IV SCH (11:30)
[2022-04-14 11:48] LABS: CALCIUM 9.9 mg/dL (8.5-10.1)
[2022-04-14 11:49] LABS: ALBUMIN 3.6 g/dl (3.4-5.0); BLOOD UREA NITROGEN 23.2 mg/dL (7-18); MAGNESIUM 2.2 mg/dL (1.8-2.4)
[2022-04-14 11:52] LABS: PHOSPHOROUS 3.6 mg/dL (2.5-4.9)
[2022-04-14 11:53] LABS: TOT PROT 6.5 g/dl (6.4-8.2)
[2022-04-14 11:54] LABS: BILIRUBIN,TOTAL 0.4 mg/dL (0.2-1)
[2022-04-14] MEDS ORDERED: GENTAMICIN SO4 80 MG/2 ML VIAL ONE (11:56)
[2022-04-14] MEDS ORDERED: DEXAMETHASONE SOD PHOSPHATE 4 MG/1 ML VIAL ONE (12:06)
[2022-04-14 15:15] LABS: BASO % 0.6 % (0-2.0); EOS % 0.1 % (0-4.5); HEMATOCRIT 33.7 % (35.4-49); HEMOGLOBIN 10.9 GM/dL (11.7-16.9); LYMPH % 10.1 % (8-40); MCH 30.8 pg (25.7-33.7); MCHC 32.2 g/dl (32.0-35.9); MEAN CELL VOLUME 95.8 fl (80-96); MEAN PLT VOLUME 9.6 fl (7.5-11.1); MONO % 6.2 % (3.8-10.2); PLATELET COUNT 234 10^3/uL (134-434); RBC 3.52 M/mm3 (4.00-5.60); RDW 14.3 % (11.9-15.9); WHITE BLOOD COUNT 17.2 K/mm3 (4.0-10.0)
[2022-04-14 19:23] LABS: BASO % 0.4 % (0-2.0); HEMATOCRIT 31.5 % (35.4-49); HEMOGLOBIN 10.4 GM/dL (11.7-16.9); LYMPH % 4.6 % (8-40); MCH 31.8 pg (25.7-33.7); MCHC 32.9 g/dl (32.0-35.9); MEAN CELL VOLUME 96.6 fl (80-96); MEAN PLT VOLUME 9.3 fl (7.5-11.1); MONO % 7.5 % (3.8-10.2); NEUT % 87.5 % (42.8-82.8); RBC 3.26 M/mm3 (4.00-5.60); RDW 14.8 % (11.9-15.9); WHITE BLOOD COUNT 19.9 K/mm3 (4.0-10.0)
[2022-04-14 20:55] LABS: PLATELET COUNT 225 10^3/uL (134-434)
[2022-04-14] MEDS ORDERED: ATORVASTATIN CA 80 MG TABLET (FP) PO SCH (22:00)
[2022-04-14] MEDS: ATORVASTATIN CA 80 MG TABLET (FP) PO SCH (22:47)
[2022-04-15] MEDS: LACTATED RINGERS SOLUTION 1,000 ML IV SCH ×2 (02:01→12:17)
[2022-04-15 08:39] LABS: BASO % 0.4 % (0-2.0); EOS % 1.5 % (0-4.5); HEMATOCRIT 24.1 % (35.4-49); LYMPH % 17.2 % (8-40); MCH 31.2 pg (25.7-33.7); MCHC 33.1 g/dl (32.0-35.9); MEAN CELL VOLUME 94.2 fl (80-96); MEAN PLT VOLUME 9.4 fl (7.5-11.1); MONO % 12.5 % (3.8-10.2); NEUT % 68.4 % (42.8-82.8); PLATELET COUNT 185 10^3/uL (134-434); RBC 2.55 M/mm3 (4.00-5.60); RDW 14.6 % (11.9-15.9)
[2022-04-15 09:07] LABS: BLOOD UREA NITROGEN 24.4 mg/dL (7-18); CALCIUM 8.6 mg/dL (8.5-10.1); CREATININE 0.9 mg/dL (0.55-1.3)
[2022-04-15] MEDS: metoPROLOL SUCCINATE 25 MG TAB.SR.24H (FP) PO SCH (09:45)
[2022-04-15] MEDS: LOSARTAN POTASSIUM 50 MG TABLET PO SCH (09:45)
[2022-04-15] MEDS: TAMSULOSIN HCL 0.4 MG CAP PO SCH (09:46)
[2022-04-15] MEDS: BICALUTAMIDE 50 MG TABLET (FP) PO SCH (09:47)
[2022-04-15] MEDS: CEFTRIAXONE 1 GM in DEXTROSE 5%-WATER - 50 ML IVPB SCH (09:47)
[2022-04-15] MEDS ORDERED: ACETAMINOPHEN 325 MG TABLET (FP) PO PRN (20:19)
[2022-04-15] MEDS: ATORVASTATIN CA 80 MG TABLET (FP) PO SCH (21:25)
[2022-04-16] MEDS: LACTATED RINGERS SOLUTION 1,000 ML IV SCH ×4 (03:52→22:56)
[2022-04-16] MEDS: TAMSULOSIN HCL 0.4 MG CAP PO SCH (10:00)
[2022-04-16] MEDS: metoPROLOL SUCCINATE 25 MG TAB.SR.24H (FP) PO SCH (10:01)
[2022-04-16] MEDS: BICALUTAMIDE 50 MG TABLET (FP) PO SCH (10:01)
[2022-04-16] MEDS: LOSARTAN POTASSIUM 50 MG TABLET PO SCH (10:01)
[2022-04-16] MEDS: CEFTRIAXONE 1 GM in DEXTROSE 5%-WATER - 50 ML IVPB SCH (10:01)
[2022-04-16 12:45] LABS: BASO % 0.5 % (0-2.0); EOS % 4.7 % (0-4.5); HEMATOCRIT 24.6 % (35.4-49); HEMOGLOBIN 8.6 GM/dL (11.7-16.9); LYMPH % 13.3 % (8-40); MCH 32.5 pg (25.7-33.7); MEAN PLT VOLUME 8.7 fl (7.5-11.1); MONO % 8.6 % (3.8-10.2); NEUT % 72.9 % (42.8-82.8); PLATELET COUNT 167 10^3/uL (134-434); RBC 2.65 M/mm3 (4.00-5.60); RDW 14.4 % (11.9-15.9); WHITE BLOOD COUNT 9.4 K/mm3 (4.0-10.0)
[2022-04-16 13:07] LABS: BLOOD UREA NITROGEN 14.8 mg/dL (7-18); CALCIUM 8.8 mg/dL (8.5-10.1)
[2022-04-16 13:08] LABS: CREATININE 0.8 mg/dL (0.55-1.3)
[2022-04-16 20:23] LABS: BASO % 0.8 % (0-2.0); EOS % 5.7 % (0-4.5); HEMOGLOBIN 8.1 GM/dL (11.7-16.9); LYMPH % 16.5 % (8-40); MCH 31.6 pg (25.7-33.7); MCHC 33.8 g/dl (32.0-35.9); MEAN CELL VOLUME 93.5 fl (80-96); MEAN PLT VOLUME 8.9 fl (7.5-11.1); MONO % 8.7 % (3.8-10.2); NEUT % 68.3 % (42.8-82.8); PLATELET COUNT 172 10^3/uL (134-434); RBC 2.57 M/mm3 (4.00-5.60); RDW 14.3 % (11.9-15.9); WHITE BLOOD COUNT 9.1 K/mm3 (4.0-10.0)
[2022-04-16] MEDS: ATORVASTATIN CA 80 MG TABLET (FP) PO SCH (21:37)
[2022-04-17] MEDS: TAMSULOSIN HCL 0.4 MG CAP PO SCH (08:49)
[2022-04-17 09:31] LABS: BASO % 1.2 % (0-2.0); EOS % 5.6 % (0-4.5); LYMPH % 20.2 % (8-40); MCH 33.1 pg (25.7-33.7); MEAN PLT VOLUME 8.3 fl (7.5-11.1); MONO % 8.7 % (3.8-10.2); NEUT % 64.3 % (42.8-82.8); PLATELET COUNT 184 10^3/uL (134-434); RBC 2.71 M/mm3 (4.00-5.60); WHITE BLOOD COUNT 8.8 K/mm3 (4.0-10.0)
[2022-04-17 09:57] LABS: CALCIUM 9.1 mg/dL (8.5-10.1)
[2022-04-17 09:59] LABS: BLOOD UREA NITROGEN 11.9 mg/dL (7-18)
[2022-04-17 10:01] LABS: CREATININE 0.7 mg/dL (0.55-1.3)
[2022-04-17] MEDS: LOSARTAN POTASSIUM 50 MG TABLET PO SCH (11:22)
[2022-04-17] MEDS: CEFTRIAXONE 1 GM in DEXTROSE 5%-WATER - 50 ML IVPB SCH (11:22)
[2022-04-17] MEDS: metoPROLOL SUCCINATE 25 MG TAB.SR.24H (FP) PO SCH (11:22)
[2022-04-17] MEDS: BICALUTAMIDE 50 MG TABLET (FP) PO SCH (11:22)
[2022-04-17] MEDS ORDERED: DOCUSATE SODIUM 100 MG CAPSULE (FP) PO PRN (14:05)
[2022-04-17] MEDS: FERROUS GLUCONATE 324 MG TAB (FP) PO SCH (16:43)
[2022-04-17] MEDS: ATORVASTATIN CA 80 MG TABLET (FP) PO SCH (21:11)
[2022-04-18] MEDS: FERROUS GLUCONATE 324 MG TAB (FP) PO SCH ×3 (08:01→17:38)
[2022-04-18] MEDS: TAMSULOSIN HCL 0.4 MG CAP PO SCH (08:01)
[2022-04-18 09:34] LABS: EOS % 7.1 % (0-4.5); HEMATOCRIT 25.7 % (35.4-49); HEMOGLOBIN 8.7 GM/dL (11.7-16.9); LYMPH % 21.5 % (8-40); MCH 31.7 pg (25.7-33.7); MEAN CELL VOLUME 93.3 fl (80-96); MEAN PLT VOLUME 8.1 fl (7.5-11.1); MONO % 9.1 % (3.8-10.2); NEUT % 61.3 % (42.8-82.8); PLATELET COUNT 225 10^3/uL (134-434); RBC 2.75 M/mm3 (4.00-5.60); RDW 14.4 % (11.9-15.9); WHITE BLOOD COUNT 8.5 K/mm3 (4.0-10.0)
[2022-04-18 09:55] LABS: CALCIUM 9.4 mg/dL (8.5-10.1)
[2022-04-18 09:57] LABS: BLOOD UREA NITROGEN 15.8 mg/dL (7-18)
[2022-04-18 09:59] LABS: CREATININE 0.8 mg/dL (0.55-1.3)
[2022-04-18] MEDS: LOSARTAN POTASSIUM 50 MG TABLET PO SCH (10:22)
[2022-04-18] MEDS: metoPROLOL SUCCINATE 25 MG TAB.SR.24H (FP) PO SCH (10:22)
[2022-04-18] MEDS: CEFTRIAXONE 1 GM in DEXTROSE 5%-WATER - 50 ML IVPB SCH (10:22)
[2022-04-18] MEDS: BICALUTAMIDE 50 MG TABLET (FP) PO SCH (13:01)
[2022-04-18] MEDS: ATORVASTATIN CA 80 MG TABLET (FP) PO SCH (21:31)
[2022-04-18] MEDS ORDERED: MENTHOL/PHENOL 1 EACH UD MM PRN (21:49)
[2022-04-19] MEDS: FERROUS GLUCONATE 324 MG TAB (FP) PO SCH ×3 (09:04→17:55)
[2022-04-19] MEDS: TAMSULOSIN HCL 0.4 MG CAP PO SCH (09:04)
[2022-04-19] MEDS: BICALUTAMIDE 50 MG TABLET (FP) PO SCH (09:10)
[2022-04-19] MEDS: metoPROLOL SUCCINATE 25 MG TAB.SR.24H (FP) PO SCH (09:10)
[2022-04-19] MEDS: LOSARTAN POTASSIUM 50 MG TABLET PO SCH (09:10)
[2022-04-19 12:06] LABS: EOS % 5.1 % (0-4.5); HEMATOCRIT 26.2 % (35.4-49); HEMOGLOBIN 9.1 GM/dL (11.7-16.9); LYMPH % 18.2 % (8-40); MCH 32.6 pg (25.7-33.7); MCHC 34.6 g/dl (32.0-35.9); MEAN CELL VOLUME 94.4 fl (80-96); MEAN PLT VOLUME 8.3 fl (7.5-11.1); MONO % 7.5 % (3.8-10.2); NEUT % 68.2 % (42.8-82.8); PLATELET COUNT 251 10^3/uL (134-434); RBC 2.78 M/mm3 (4.00-5.60); RDW 14.2 % (11.9-15.9); WHITE BLOOD COUNT 8.4 K/mm3 (4.0-10.0)
[2022-04-19 12:47] LABS: CALCIUM 9.2 mg/dL (8.5-10.1)
[2022-04-19 12:48] LABS: BLOOD UREA NITROGEN 16.5 mg/dL (7-18)
[2022-04-19 12:50] LABS: CREATININE 0.9 mg/dL (0.55-1.3)
[2022-04-19 15:38] VITALS: RESP 18
[2022-04-19 18:13] VITALS: BP 120/76; PULSE 90; TEMP 98.3
== END 2022-04-19 19:44 | DRG 663 ==
LOC: JER 13:14 → JERBED 14:22 → J5S 21:42
PROVIDERS: ADMIT Internal Medicine; ATTEND Internal Medicine
PROC: 0W3R8ZZ Control Bleeding in Genitourinary Tract, Via Natural or Artificial Opening Endoscopic (ICD-10-PCS; 2022-04-14)
PROC: 0TCB8ZZ Extirpation of Matter from Bladder, Via Natural or Artificial Opening Endoscopic (ICD-10-PCS; 2022-04-14)
PROC: 0TBB8ZZ Excision of Bladder, Via Natural or Artificial Opening Endoscopic (ICD-10-PCS; principal; 2022-04-14 13:00)
PROC: 30233N1 Transfusion of Nonautologous Red Blood Cells into Peripheral Vein, Percutaneous Approach (ICD-10-PCS; 2022-04-15)
DX: D49.4 Neoplasm of unspecified behavior of bladder (principal); C79.11 Secondary malignant neoplasm of bladder; D62 Acute posthemorrhagic anemia; I25.10 Atherosclerotic heart disease of native coronary artery without angina pectoris; I10 Essential (primary) hypertension; E78.5 Hyperlipidemia, unspecified; R33.8 Other retention of urine; C61 Malignant neoplasm of prostate; R31.0 Gross hematuria; D72.829 Elevated white blood cell count, unspecified
CPT/HCPCS: 36415; 36430; 71045-TC-FY; 80048; 80053; 81003; 83735; 84100; 85025; 85610; 85730; 86850; 86900; 86901; 86922; 87086; 88304-TC; 93005; 93010; 94760; 97116-GP; 97161-GP; 99285-25; C9803-CS; P9058; U0003; U0005

== ENCOUNTER 2022-07-05 08:53 | Inpatient (IN) | payer OTHER ==
[2022-07-05 11:28] LABS: BASO % 0.3 % (0-2.0); EOS % 0.1 % (0-4.5); HEMATOCRIT 28.4 % (35.4-49); LYMPH % 8.2 % (8-40); MCH 25.7 pg (25.7-33.7); MCHC 31.8 g/dl (32.0-35.9); MEAN CELL VOLUME 80.8 fl (80-96); MEAN PLT VOLUME 8.4 fl (7.5-11.1); MONO % 4.9 % (3.8-10.2); NEUT % 86.5 % (42.8-82.8); PLATELET COUNT 339 10^3/uL (134-434); RBC 3.51 M/mm3 (4.00-5.60); RDW 16.1 % (11.9-15.9); WHITE BLOOD COUNT 14.1 K/mm3 (4.0-10.0)
[2022-07-05 11:49] LABS: EPI CELLS 1 /uL (0-25.1); HYALINE CASTS 0 /uL (0-3.1); PH,URINE 6.5 (5.0-8.0); URINE APPEARANCE CLEAR; URINE BACTERIA 11 /uL (0-1359); URINE BILIRUBIN NEGATIVE (NEGATIVE); URINE COLOR YELLOW; URINE GLUCOSE (UA) NEGATIVE (NEGATIVE); URINE KETONE NEGATIVE (NEGATIVE); URINE LEUK ESTERASE 1+ (NEGATIVE); URINE NITRITE NEGATIVE (NEGATIVE); URINE PROTEIN 4+ (NEGATIVE); URINE RBC 128 /uL (0-23.9); URINE UROBILINOGEN 0.2 mg/dL (0.2-1.0); URINE WBC 2 /uL (0-25.8)
[2022-07-05 11:54] LABS: ACTIVATED PTT 28.4 SECONDS (25.2-36.5); ALBUMIN 3.9 g/dl (3.4-5.0); BLOOD UREA NITROGEN 24.8 mg/dL (7-18); CALCIUM 9.9 mg/dL (8.5-10.1); INR 0.97 (0.83-1.09); PROTHROMBIN TIME (PATIENT) 11.1 SEC (9.7-13.0)
[2022-07-05 11:57] LABS: CREATININE 1.2 mg/dL (0.55-1.3)
[2022-07-05 11:59] LABS: BILIRUBIN,TOTAL 0.3 mg/dL (0.2-1)
[2022-07-05 12:00] LABS: TOT PROT 7.1 g/dl (6.4-8.2)
[2022-07-05] MEDS ORDERED: CEFTRIAXONE 1 GM in DEXTROSE 5%-WATER - 50 ML IVPB ONE (13:04)
[2022-07-05] MEDS ORDERED: CEFTRIAXONE 1 GM/50 ML BAG ONE (13:12)
[2022-07-05] MEDS ORDERED: ACETAMINOPHEN 325 MG TABLET (FP) PO PRN (18:50)
[2022-07-05] MEDS ORDERED: DOCUSATE SODIUM 100 MG CAPSULE (FP) PO PRN (20:50)
[2022-07-05] MEDS ORDERED: MELATONIN 5 MG TABLETS PO ONE (20:53)
[2022-07-05] MEDS: ATORVASTATIN CA 80 MG TABLET (FP) PO SCH (22:11)
[2022-07-05 23:57] VITALS: BMI 23.8
[2022-07-06] MEDS: TAMSULOSIN HCL 0.4 MG CAP PO SCH (08:48)
[2022-07-06 09:44] LABS: BASO % 0.7 % (0-2.0); EOS % 2.8 % (0-4.5); HEMATOCRIT 23.7 % (35.4-49); HEMOGLOBIN 7.5 GM/dL (11.7-16.9); LYMPH % 18.8 % (8-40); MCH 25.3 pg (25.7-33.7); MCHC 31.8 g/dl (32.0-35.9); MEAN CELL VOLUME 79.3 fl (80-96); MEAN PLT VOLUME 8.5 fl (7.5-11.1); MONO % 9.3 % (3.8-10.2); NEUT % 68.4 % (42.8-82.8); PLATELET COUNT 305 10^3/uL (134-434); RBC 2.99 M/mm3 (4.00-5.60); RDW 16.2 % (11.9-15.9); WHITE BLOOD COUNT 9.8 K/mm3 (4.0-10.0)
[2022-07-06 09:51] LABS: INR 1.03 (0.83-1.09); PROTHROMBIN TIME (PATIENT) 11.8 SEC (9.7-13.0)
[2022-07-06] MEDS: LOSARTAN POTASSIUM 50 MG TABLET PO SCH (10:02)
[2022-07-06] MEDS: CEFTRIAXONE 1 GM in DEXTROSE 5%-WATER - 50 ML IVPB SCH (10:02)
[2022-07-06] MEDS: metoPROLOL SUCCINATE 25 MG TAB.SR.24H (FP) PO SCH (10:02)
[2022-07-06] MEDS: ATORVASTATIN CA 80 MG TABLET (FP) PO SCH (10:02)
[2022-07-06 10:05] LABS: CALCIUM 9.5 mg/dL (8.5-10.1)
[2022-07-06 10:06] LABS: BLOOD UREA NITROGEN 18.2 mg/dL (7-18); MAGNESIUM 1.9 mg/dL (1.8-2.4)
[2022-07-06 10:08] LABS: CREATININE 0.9 mg/dL (0.55-1.3); PHOSPHOROUS 3.1 mg/dL (2.5-4.9)
[2022-07-06 10:10] LABS: BILIRUBIN,TOTAL 0.3 mg/dL (0.2-1); TOT PROT 5.6 g/dl (6.4-8.2)
[2022-07-06 10:24] LABS: ALBUMIN 2.9 g/dl (3.4-5.0)
[2022-07-06] MEDS ORDERED: SODIUM CHLORIDE 1,000 ML IV SCH (11:45)
[2022-07-07 09:27] LABS: BASO % 0.8 % (0-2.0); EOS % 4.6 % (0-4.5); HEMOGLOBIN 6.8 GM/dL (11.7-16.9); LYMPH % 25.4 % (8-40); MCH 25.8 pg (25.7-33.7); MCHC 32.5 g/dl (32.0-35.9); MEAN CELL VOLUME 79.5 fl (80-96); MEAN PLT VOLUME 8.2 fl (7.5-11.1); MONO % 9.8 % (3.8-10.2); NEUT % 59.4 % (42.8-82.8); PLATELET COUNT 277 10^3/uL (134-434); RBC 2.65 M/mm3 (4.00-5.60); RDW 16.3 % (11.9-15.9)
[2022-07-07 09:39] LABS: WHITE BLOOD COUNT 9.9 K/mm3 (4.0-10.0)
[2022-07-07 09:50] LABS: ALBUMIN 2.7 g/dl (3.4-5.0)
[2022-07-07 09:51] LABS: BLOOD UREA NITROGEN 22.3 mg/dL (7-18); CALCIUM 8.7 mg/dL (8.5-10.1); MAGNESIUM 1.9 mg/dL (1.8-2.4)
[2022-07-07 09:55] LABS: BILIRUBIN,TOTAL 0.3 mg/dL (0.2-1); TOT PROT 5.4 g/dl (6.4-8.2)
[2022-07-07] MEDS: LOSARTAN POTASSIUM 50 MG TABLET PO SCH (09:56)
[2022-07-07] MEDS: TAMSULOSIN HCL 0.4 MG CAP PO SCH (09:56)
[2022-07-07] MEDS: metoPROLOL SUCCINATE 25 MG TAB.SR.24H (FP) PO SCH (09:56)
[2022-07-07] MEDS: CEFTRIAXONE 1 GM in DEXTROSE 5%-WATER - 50 ML IVPB SCH (09:56)
[2022-07-07] MEDS ORDERED: PROPOFOL 20 ML ONE ×2 (13:35→13:36)
[2022-07-07] MEDS ORDERED: FENTANYL CITRATE/PF 50 MCG/ML VIAL ONE ×2 (13:35→14:07)
[2022-07-07] MEDS ORDERED: LIDOCAINE HCL 2% 100 MG/5 ML DISP.SYRIN ONE (13:36)
[2022-07-07] MEDS ORDERED: ONDANSETRON 4 MG/2 ML VIAL IVPUSH PRN (14:37)
[2022-07-07] MEDS ORDERED: ACETAMINOPHEN 1000 MG/100 ML BAG IVPB ONE (14:38)
[2022-07-07] MEDS: INSULIN SLIDING SCALE (NOVOLOG) 1 VIAL SQ SCH ×2 (17:41→21:29)
[2022-07-07] MEDS: SODIUM CHLORIDE 1,000 ML IV SCH (17:42)
[2022-07-07] MEDS ORDERED: SODIUM CHLORIDE 500 ML IV STA (19:35)
[2022-07-07] MEDS: ATORVASTATIN CA 80 MG TABLET (FP) PO SCH (21:29)
[2022-07-07] MEDS ORDERED: ATORVASTATIN CA 80 MG TABLET (FP) PO SCH (22:00)
[2022-07-07 22:09] LABS: BASO % 0.7 % (0-2.0); EOS % 3.1 % (0-4.5); HEMATOCRIT 24.8 % (35.4-49); LYMPH % 10.4 % (8-40); MCH 26.9 pg (25.7-33.7); MCHC 32.3 g/dl (32.0-35.9); MEAN CELL VOLUME 83.4 fl (80-96); MEAN PLT VOLUME 8.4 fl (7.5-11.1); MONO % 10.3 % (3.8-10.2); NEUT % 75.5 % (42.8-82.8); PLATELET COUNT 251 10^3/uL (134-434); RBC 2.98 M/mm3 (4.00-5.60); WHITE BLOOD COUNT 12.1 K/mm3 (4.0-10.0)
[2022-07-08] MEDS: INSULIN SLIDING SCALE (NOVOLOG) 1 VIAL SQ SCH ×4 (06:25→21:46)
[2022-07-08] MEDS ORDERED: LOSARTAN POTASSIUM 50 MG TABLET PO SCH (10:00)
[2022-07-08] MEDS ORDERED: metoPROLOL SUCCINATE 25 MG TAB.SR.24H (FP) PO SCH (10:00)
[2022-07-08 10:12] LABS: BASO % 0.6 % (0-2.0); EOS % 4.8 % (0-4.5); HEMATOCRIT 25.5 % (35.4-49); HEMOGLOBIN 8.5 GM/dL (11.7-16.9); LYMPH % 15.3 % (8-40); MCH 27.2 pg (25.7-33.7); MCHC 33.2 g/dl (32.0-35.9); MEAN CELL VOLUME 81.8 fl (80-96); MEAN PLT VOLUME 8.5 fl (7.5-11.1); MONO % 9.1 % (3.8-10.2); NEUT % 70.2 % (42.8-82.8); PLATELET COUNT 283 10^3/uL (134-434); RBC 3.12 M/mm3 (4.00-5.60); WHITE BLOOD COUNT 10.8 K/mm3 (4.0-10.0)
[2022-07-08 10:42] LABS: ALBUMIN 2.6 g/dl (3.4-5.0); CALCIUM 8.5 mg/dL (8.5-10.1); MAGNESIUM 1.8 mg/dL (1.8-2.4)
[2022-07-08 10:47] LABS: BILIRUBIN,TOTAL 0.6 mg/dL (0.2-1); TOT PROT 5.2 g/dl (6.4-8.2)
[2022-07-08] MEDS: TAMSULOSIN HCL 0.4 MG CAP PO SCH (10:49)
[2022-07-08] MEDS: CEFTRIAXONE 1 GM in DEXTROSE 5%-WATER - 50 ML IVPB SCH (10:49)
[2022-07-08] MEDS ORDERED: SODIUM CHLORIDE 250 ML IV STA (13:31)
[2022-07-08] MEDS ORDERED: SODIUM CHLORIDE 0.9% 500 ML INFUS.BAG IV ONE (14:16)
[2022-07-08] MEDS: SODIUM CHLORIDE 1,000 ML IV SCH ×2 (15:01→17:36)
[2022-07-08] MEDS: DOCUSATE SODIUM 100 MG CAPSULE (FP) PO PRN (17:38)
[2022-07-08] MEDS: ACETAMINOPHEN 325 MG TABLET (FP) PO PRN (20:33)
[2022-07-08] MEDS: ATORVASTATIN CA 80 MG TABLET (FP) PO SCH (21:39)
[2022-07-08] MEDS: POLYETHYLENE GLYCOL (HEALTHYLAX) 3350 17 GM PACKET PO SCH (21:39)
[2022-07-09] MEDS: INSULIN SLIDING SCALE (NOVOLOG) 1 VIAL SQ SCH ×4 (06:32→21:22)
[2022-07-09 09:42] LABS: BASO % 0.4 % (0-2.0); EOS % 6.8 % (0-4.5); HEMATOCRIT 24.2 % (35.4-49); LYMPH % 19.8 % (8-40); MCH 27.5 pg (25.7-33.7); MCHC 33.2 g/dl (32.0-35.9); MEAN CELL VOLUME 82.9 fl (80-96); MEAN PLT VOLUME 8.1 fl (7.5-11.1); MONO % 8.8 % (3.8-10.2); NEUT % 64.2 % (42.8-82.8); PLATELET COUNT 275 10^3/uL (134-434); RBC 2.91 M/mm3 (4.00-5.60); RDW 16.3 % (11.9-15.9)
[2022-07-09] MEDS: POLYETHYLENE GLYCOL (HEALTHYLAX) 3350 17 GM PACKET PO SCH ×2 (09:55→21:56)
[2022-07-09] MEDS: metoPROLOL SUCCINATE 25 MG TAB.SR.24H (FP) PO SCH (09:55)
[2022-07-09] MEDS: LOSARTAN POTASSIUM 50 MG TABLET PO SCH (09:55)
[2022-07-09] MEDS: TAMSULOSIN HCL 0.4 MG CAP PO SCH (09:55)
[2022-07-09] MEDS: CEFTRIAXONE 1 GM in DEXTROSE 5%-WATER - 50 ML IVPB SCH (09:56)
[2022-07-09 10:03] LABS: ALBUMIN 2.6 g/dl (3.4-5.0); BLOOD UREA NITROGEN 18.3 mg/dL (7-18); CALCIUM 8.4 mg/dL (8.5-10.1); MAGNESIUM 1.9 mg/dL (1.8-2.4)
[2022-07-09 10:06] LABS: PHOSPHOROUS 2.5 mg/dL (2.5-4.9)
[2022-07-09 10:08] LABS: BILIRUBIN,TOTAL 0.4 mg/dL (0.2-1); TOT PROT 5.3 g/dl (6.4-8.2)
[2022-07-09] MEDS: ATORVASTATIN CA 80 MG TABLET (FP) PO SCH (21:56)
[2022-07-10] MEDS: INSULIN SLIDING SCALE (NOVOLOG) 1 VIAL SQ SCH ×4 (06:14→21:24)
[2022-07-10] MEDS: TAMSULOSIN HCL 0.4 MG CAP PO SCH (08:22)
[2022-07-10] MEDS: metoPROLOL SUCCINATE 25 MG TAB.SR.24H (FP) PO SCH (09:42)
[2022-07-10] MEDS: LOSARTAN POTASSIUM 50 MG TABLET PO SCH (09:42)
[2022-07-10] MEDS: POLYETHYLENE GLYCOL (HEALTHYLAX) 3350 17 GM PACKET PO SCH ×2 (09:42→21:23)
[2022-07-10] MEDS ORDERED: INSULIN (NOVOLOG) ASPART 100 UNITS/ML 10ML VIAL ONE (11:15)
[2022-07-10 12:04] LABS: ALBUMIN 2.8 g/dl (3.4-5.0); BLOOD UREA NITROGEN 16.9 mg/dL (7-18)
[2022-07-10 12:07] LABS: CREATININE 0.9 mg/dL (0.55-1.3)
[2022-07-10 12:09] LABS: BILIRUBIN,TOTAL 0.2 mg/dL (0.2-1); TOT PROT 5.8 g/dl (6.4-8.2)
[2022-07-10 12:28] LABS: BASO % 0.5 % (0-2.0); EOS % 5.1 % (0-4.5); HEMATOCRIT 27.3 % (35.4-49); HEMOGLOBIN 8.9 GM/dL (11.7-16.9); LYMPH % 19.3 % (8-40); MCH 27.1 pg (25.7-33.7); MCHC 32.7 g/dl (32.0-35.9); MEAN CELL VOLUME 82.9 fl (80-96); MEAN PLT VOLUME 8.2 fl (7.5-11.1); MONO % 7.1 % (3.8-10.2); PLATELET COUNT 340 10^3/uL (134-434); RDW 16.9 % (11.9-15.9); WHITE BLOOD COUNT 10.3 K/mm3 (4.0-10.0)
[2022-07-10] MEDS: ACETAMINOPHEN 325 MG TABLET (FP) PO PRN (17:36)
[2022-07-10 20:09] LABS: HEMATOCRIT 24.1 % (35.4-49); HEMOGLOBIN 7.8 GM/dL (11.7-16.9); MCH 26.8 pg (25.7-33.7); MCHC 32.6 g/dl (32.0-35.9); MEAN CELL VOLUME 82.4 fl (80-96); MEAN PLT VOLUME 8.4 fl (7.5-11.1); PLATELET COUNT 308 10^3/uL (134-434); RBC 2.92 M/mm3 (4.00-5.60); WHITE BLOOD COUNT 11.8 K/mm3 (4.0-10.0)
[2022-07-10] MEDS: DOCUSATE SODIUM 100 MG CAPSULE (FP) PO PRN (21:23)
[2022-07-10] MEDS: ATORVASTATIN CA 80 MG TABLET (FP) PO SCH (21:23)
[2022-07-11] MEDS: INSULIN SLIDING SCALE (NOVOLOG) 1 VIAL SQ SCH ×4 (06:41→21:41)
[2022-07-11 10:53] LABS: BASO % 0.8 % (0-2.0); EOS % 4.7 % (0-4.5); HEMATOCRIT 27.2 % (35.4-49); HEMOGLOBIN 8.8 GM/dL (11.7-16.9); LYMPH % 18.4 % (8-40); MCHC 32.3 g/dl (32.0-35.9); MEAN CELL VOLUME 83.4 fl (80-96); MEAN PLT VOLUME 8.5 fl (7.5-11.1); MONO % 5.5 % (3.8-10.2); NEUT % 70.6 % (42.8-82.8); PLATELET COUNT 333 10^3/uL (134-434); RBC 3.26 M/mm3 (4.00-5.60); RDW 17.4 % (11.9-15.9); WHITE BLOOD COUNT 12.2 K/mm3 (4.0-10.0)
[2022-07-11] MEDS: POLYETHYLENE GLYCOL (HEALTHYLAX) 3350 17 GM PACKET PO SCH ×2 (11:23→21:40)
[2022-07-11] MEDS: LOSARTAN POTASSIUM 50 MG TABLET PO SCH (11:24)
[2022-07-11] MEDS: metoPROLOL SUCCINATE 25 MG TAB.SR.24H (FP) PO SCH (11:24)
[2022-07-11] MEDS: TAMSULOSIN HCL 0.4 MG CAP PO SCH (11:24)
[2022-07-11 11:28] LABS: ALBUMIN 2.8 g/dl (3.4-5.0); CALCIUM 9.2 mg/dL (8.5-10.1)
[2022-07-11 11:29] LABS: BLOOD UREA NITROGEN 20.6 mg/dL (7-18); MAGNESIUM 2.1 mg/dL (1.8-2.4)
[2022-07-11 11:31] LABS: CREATININE 0.9 mg/dL (0.55-1.3)
[2022-07-11 11:33] LABS: BILIRUBIN,TOTAL 0.6 mg/dL (0.2-1); TOT PROT 5.8 g/dl (6.4-8.2)
[2022-07-11] MEDS: ATORVASTATIN CA 80 MG TABLET (FP) PO SCH (21:41)
[2022-07-11 21:58] VITALS: RESP 20
[2022-07-12] MEDS: INSULIN SLIDING SCALE (NOVOLOG) 1 VIAL SQ SCH ×2 (06:35→11:59)
[2022-07-12] MEDS: POLYETHYLENE GLYCOL (HEALTHYLAX) 3350 17 GM PACKET PO SCH (09:21)
[2022-07-12] MEDS: TAMSULOSIN HCL 0.4 MG CAP PO SCH (09:21)
[2022-07-12 09:23] VITALS: BP 92/50; PULSE 100; TEMP 98.4
[2022-07-12] MEDS: metoPROLOL SUCCINATE 25 MG TAB.SR.24H (FP) PO SCH (09:29)
[2022-07-12] MEDS: LOSARTAN POTASSIUM 50 MG TABLET PO SCH (09:29)
[2022-07-12 10:53] LABS: BASO % 0.6 % (0-2.0); EOS % 4.9 % (0-4.5); HEMATOCRIT 27.5 % (35.4-49); LYMPH % 20.3 % (8-40); MCH 27.1 pg (25.7-33.7); MCHC 32.6 g/dl (32.0-35.9); MEAN CELL VOLUME 83.1 fl (80-96); MEAN PLT VOLUME 8.3 fl (7.5-11.1); MONO % 6.4 % (3.8-10.2); NEUT % 67.8 % (42.8-82.8); PLATELET COUNT 373 10^3/uL (134-434); RBC 3.31 M/mm3 (4.00-5.60); RDW 17.6 % (11.9-15.9); WHITE BLOOD COUNT 10.8 K/mm3 (4.0-10.0)
[2022-07-12 11:46] LABS: CALCIUM 9.7 mg/dL (8.5-10.1)
[2022-07-12 11:47] LABS: BLOOD UREA NITROGEN 18.5 mg/dL (7-18)
[2022-07-12 11:50] LABS: CREATININE 0.9 mg/dL (0.55-1.3); MAGNESIUM 2.2 mg/dL (1.8-2.4)
[2022-07-12 11:52] LABS: BILIRUBIN,TOTAL 0.4 mg/dL (0.2-1); TOT PROT 6.2 g/dl (6.4-8.2)
== END 2022-07-12 13:21 | disposition home health service (06) | DRG 669 ==
LOC: JER 08:53 → JERBED 13:16 → OBSVTOIN 16:49 → J8W 19:18
PROVIDERS: ADMIT Internal Medicine; ATTEND Internal Medicine
PROC: 0T9B80Z Drainage of Bladder with Drainage Device, Via Natural or Artificial Opening Endoscopic (ICD-10-PCS; 2022-07-07)
PROC: 30233N1 Transfusion of Nonautologous Red Blood Cells into Peripheral Vein, Percutaneous Approach (ICD-10-PCS; 2022-07-07)
PROC: 0TBB8ZZ Excision of Bladder, Via Natural or Artificial Opening Endoscopic (ICD-10-PCS; principal; 2022-07-07 13:00)
PROC: 0TCB8ZZ Extirpation of Matter from Bladder, Via Natural or Artificial Opening Endoscopic (ICD-10-PCS; 2022-07-07 13:00)
DX: C79.11 Secondary malignant neoplasm of bladder (principal); D62 Acute posthemorrhagic anemia; N39.0 Urinary tract infection, site not specified; R33.9 Retention of urine, unspecified; R31.0 Gross hematuria; C61 Malignant neoplasm of prostate; I10 Essential (primary) hypertension; I25.10 Atherosclerotic heart disease of native coronary artery without angina pectoris; E78.5 Hyperlipidemia, unspecified; Z95.5 Presence of coronary angioplasty implant and graft
CPT/HCPCS: 36415; 36430; 80053; 81003; 82962; 83036; 83735; 84100; 84443; 85025; 85027; 85610; 85730; 86850; 86870; 86900; 86901; 86902; 86922; 87086; 94010; 94760; 97116-GP; 99285-25; C9803-CS; G0378; P9058; U0003; U0005

== ENCOUNTER 2022-12-19 19:26 | Inpatient (IN) | payer OTHER ==
[2022-12-19 19:31] VITALS: BMI 25.0
[2022-12-19] MEDS ORDERED: LIDOCAINE HCL 2% JELLY 10 ML CARTRIDGE ONE (20:03)
[2022-12-19] MEDS ORDERED: LIDOCAINE HCL 2% JELLY 10 ML CARTRIDGE UR ONE (20:19)
[2022-12-19] MEDS ORDERED: LACTATED RINGERS SOLUTION 1000 ML INFUS.BAG IV ONE (20:22)
[2022-12-19] MEDS ORDERED: ACETAMINOPHEN 1000 MG/100 ML BAG IVPB ONE (20:22)
[2022-12-19] MEDS ORDERED: ACETAMINOPHEN INJECTION 100 ML IVPB ONE (20:58)
[2022-12-19 21:36] LABS: BASO % 0.3 % (0-2.0); EOS % 0.3 % (0-4.5); HEMATOCRIT 35.5 % (35.4-49); LYMPH % 10.1 % (8-40); MCH 28.7 pg (25.7-33.7); MCHC 33.9 g/dl (32.0-35.9); MEAN CELL VOLUME 84.6 fl (80-96); MEAN PLT VOLUME 8.4 fl (7.5-11.1); MONO % 8.6 % (3.8-10.2); NEUT % 80.7 % (42.8-82.8); PLATELET COUNT 230 10^3/uL (134-434); RBC 4.19 M/mm3 (4.00-5.60); RDW 24.6 % (11.9-15.9); WHITE BLOOD COUNT 13.3 K/mm3 (4.0-10.0)
[2022-12-19 21:40] LABS: INR 1.03 (0.83-1.09)
[2022-12-19 21:41] LABS: VENOUS BASE EXCESS 0.6 mmol/L (-2-2); VENOUS O2 SATURATION 73.6 % (70-80); VENOUS PCO2 42.5 mmHg (38-52); VENOUS PH 7.398 (7.310-7.410)
[2022-12-19 21:42] LABS: EPI CELLS 23 /uL (0-25.1); HYALINE CASTS 6 /uL (0-3.1); URINE APPEARANCE CLOUDY; URINE BILIRUBIN 1+ (NEGATIVE); URINE COLOR RED; URINE GLUCOSE (UA) NEGATIVE (NEGATIVE); URINE KETONE NEGATIVE (NEGATIVE); URINE LEUK ESTERASE 2+ (NEGATIVE); URINE NITRITE POSITIVE (NEGATIVE); URINE PROTEIN 3+ (NEGATIVE); URINE RBC 26902 /uL (0-23.9); URINE UROBILINOGEN 0.2 mg/dL (0.2-1.0); URINE WBC 200 /uL (0-25.8)
[2022-12-19 21:43] LABS: ACTIVATED PTT 31.1 SECONDS (25.2-36.5)
[2022-12-19 21:55] LABS: POTASSIUM 3.9 mmol/L (3.5-5.1)
[2022-12-19 21:58] LABS: ALBUMIN 3.9 g/dl (3.4-5.0); BLOOD UREA NITROGEN 24.3 mg/dL (7-18); CALCIUM 9.7 mg/dL (8.5-10.1)
[2022-12-19 22:03] LABS: TOT PROT 7.6 g/dl (6.4-8.2)
[2022-12-19] MEDS ORDERED: CEFTRIAXONE 1,000 MG in DEXTROSE 5%-WATER - 50 ML IVPB ONE (22:06)
[2022-12-19] MEDS ORDERED: CEFTRIAXONE 1 GM/50 ML BAG ONE (22:09)
[2022-12-19 22:10] LABS: BILIRUBIN,TOTAL 0.4 mg/dL (0.2-1)
[2022-12-19 22:18] LABS: ANISOCYTOSIS 1+; MACROCYTOSIS 0; OVALOCYTE 1+
[2022-12-19] MEDS ORDERED: ACETAMINOPHEN 325 MG TABLET (FP) PO PRN (22:54)
[2022-12-20 08:07] LABS: HEMATOCRIT 34.1 % (35.4-49); HEMOGLOBIN 11.8 GM/dL (11.7-16.9); MCH 29.2 pg (25.7-33.7); MCHC 34.5 g/dl (32.0-35.9); MEAN CELL VOLUME 84.6 fl (80-96); MEAN PLT VOLUME 8.7 fl (7.5-11.1); PLATELET COUNT 203 10^3/uL (134-434); RBC 4.03 M/mm3 (4.00-5.60)
[2022-12-20 08:41] LABS: POTASSIUM 4.1 mmol/L (3.5-5.1)
[2022-12-20 08:43] LABS: ALBUMIN 3.1 g/dl (3.4-5.0); CALCIUM 9.9 mg/dL (8.5-10.1)
[2022-12-20 08:45] LABS: BLOOD UREA NITROGEN 16.9 mg/dL (7-18); MAGNESIUM 1.7 mg/dL (1.8-2.4)
[2022-12-20 08:46] LABS: CREATININE 0.9 mg/dL (0.55-1.3)
[2022-12-20 08:47] LABS: PHOSPHOROUS 2.9 mg/dL (2.5-4.9)
[2022-12-20 08:48] LABS: BILIRUBIN,TOTAL 0.6 mg/dL (0.2-1); TOT PROT 6.4 g/dl (6.4-8.2)
[2022-12-20] MEDS: TAMSULOSIN HCL 0.4 MG CAP PO SCH (08:53)
[2022-12-20] MEDS: BICALUTAMIDE 50 MG TABLET (FP) PO SCH (10:36)
[2022-12-20] MEDS: LOSARTAN POTASSIUM 50 MG TABLET PO SCH (10:36)
[2022-12-20] MEDS: CEFTRIAXONE 1 GM in DEXTROSE 5%-WATER - 50 ML IVPB SCH (10:36)
[2022-12-20] MEDS: metoPROLOL SUCCINATE 25 MG TAB.SR.24H (FP) PO SCH (10:36)
[2022-12-20] MEDS: ESCITALOPRAM OXALATE 10 MG TABLET PO SCH (10:36)
[2022-12-20] MEDS: LACTATED RINGERS SOLUTION 1,000 ML/1,000 ML INFUS.BAG IV SCH ×2 (13:10→20:12)
[2022-12-20] MEDS: ATORVASTATIN CA 80 MG TABLET (FP) PO SCH (21:32)
[2022-12-21 08:25] LABS: BASO % 0.7 % (0-2.0); EOS % 0.6 % (0-4.5); HEMATOCRIT 32.5 % (35.4-49); HEMOGLOBIN 11.4 GM/dL (11.7-16.9); LYMPH % 14.2 % (8-40); MCH 29.4 pg (25.7-33.7); MCHC 34.9 g/dl (32.0-35.9); MEAN CELL VOLUME 84.3 fl (80-96); MEAN PLT VOLUME 8.9 fl (7.5-11.1); MONO % 14.7 % (3.8-10.2); NEUT % 69.8 % (42.8-82.8); PLATELET COUNT 198 10^3/uL (134-434); RBC 3.86 M/mm3 (4.00-5.60); RDW 23.3 % (11.9-15.9); WHITE BLOOD COUNT 9.7 K/mm3 (4.0-10.0)
[2022-12-21] MEDS: TAMSULOSIN HCL 0.4 MG CAP PO SCH (08:26)
[2022-12-21 08:43] LABS: POTASSIUM 3.8 mmol/L (3.5-5.1)
[2022-12-21 08:44] LABS: CALCIUM 9.2 mg/dL (8.5-10.1)
[2022-12-21 08:45] LABS: ALBUMIN 2.8 g/dl (3.4-5.0); BLOOD UREA NITROGEN 14.9 mg/dL (7-18)
[2022-12-21 08:48] LABS: CREATININE 0.9 mg/dL (0.55-1.3)
[2022-12-21 08:50] LABS: BILIRUBIN,TOTAL 0.4 mg/dL (0.2-1); TOT PROT 5.9 g/dl (6.4-8.2)
[2022-12-21] MEDS: LOSARTAN POTASSIUM 50 MG TABLET PO SCH (09:41)
[2022-12-21] MEDS: metoPROLOL SUCCINATE 25 MG TAB.SR.24H (FP) PO SCH (09:41)
[2022-12-21] MEDS: BICALUTAMIDE 50 MG TABLET (FP) PO SCH (09:42)
[2022-12-21] MEDS: ESCITALOPRAM OXALATE 10 MG TABLET PO SCH (09:42)
[2022-12-21] MEDS: CEFTRIAXONE 1 GM in DEXTROSE 5%-WATER - 50 ML IVPB SCH (09:42)
[2022-12-21] MEDS: LACTATED RINGERS SOLUTION 1,000 ML/1,000 ML INFUS.BAG IV SCH (10:02)
[2022-12-21] MEDS: ATORVASTATIN CA 80 MG TABLET (FP) PO SCH (21:02)
[2022-12-22] MEDS: TAMSULOSIN HCL 0.4 MG CAP PO SCH (08:15)
[2022-12-22] MEDS ORDERED: DEXAMETHASONE SOD PHOSPHATE 4 MG/1 ML VIAL ONE (10:22)
[2022-12-22] MEDS ORDERED: PROPOFOL 40 ML ONE (10:22)
[2022-12-22] MEDS ORDERED: LIDOCAINE HCL/PF 2% SDV 5ML VIAL ONE (10:22)
[2022-12-22] MEDS ORDERED: ONDANSETRON 4 MG/2 ML VIAL ONE (10:22)
[2022-12-22] MEDS: CEFTRIAXONE 1 GM in DEXTROSE 5%-WATER - 50 ML IVPB SCH (11:20)
[2022-12-22] MEDS: metoPROLOL SUCCINATE 25 MG TAB.SR.24H (FP) PO SCH (11:21)
[2022-12-22] MEDS: BICALUTAMIDE 50 MG TABLET (FP) PO SCH (11:21)
[2022-12-22] MEDS: LOSARTAN POTASSIUM 50 MG TABLET PO SCH (11:21)
[2022-12-22] MEDS: ESCITALOPRAM OXALATE 10 MG TABLET PO SCH (11:21)
[2022-12-22] MEDS: LACTATED RINGERS SOLUTION 1,000 ML/1,000 ML INFUS.BAG IV SCH (11:22)
[2022-12-22 14:15] VITALS: BP 118/60; PULSE 88; RESP 18; TEMP 99.3
== END 2022-12-22 19:30 | disposition home or self-care (01) | DRG 699 ==
LOC: JER 19:26 → JERBED 22:06 → J5S 12-20 00:28
PROVIDERS: ADMIT Internal Medicine
DX: T83.511A Infection and inflammatory reaction due to indwelling urethral catheter, initial encounter (principal); N13.8 Other obstructive and reflux uropathy; N39.0 Urinary tract infection, site not specified; C61 Malignant neoplasm of prostate; R31.0 Gross hematuria; I10 Essential (primary) hypertension; E78.5 Hyperlipidemia, unspecified; Y83.9 Surgical procedure, unspecified as the cause of abnormal reaction of the patient, or of later complication, without mention of misadventure at the time of the procedure; I25.10 Atherosclerotic heart disease of native coronary artery without angina pectoris; Z95.5 Presence of coronary angioplasty implant and graft
CPT/HCPCS: 0241U-QW; 36415; 71045-TC-FY; 80053; 81003; 82550; 82553; 82803; 83036; 83605; 83735; 84100; 84484; 85025; 85027; 85610; 85730; 87040; 87086; 87186; 93005; 93010; 97116-GP; 97161-GP; 99285-25

== ENCOUNTER 2022-12-30 20:42 | Inpatient (IN) | payer OTHER ==
[2022-12-30 21:03] VITALS: BMI 24.3
[2022-12-30] MEDS ORDERED: ACETAMINOPHEN INJECTION 100 ML IVPB ONE (21:22)
[2022-12-30] MEDS ORDERED: ACETAMINOPHEN 1000 MG/100 ML BAG IVPB ONE (21:23)
[2022-12-30 21:52] LABS: BASO % 0.4 % (0-2.0); HEMATOCRIT 32.7 % (35.4-49); HEMOGLOBIN 11.5 GM/dL (11.7-16.9); MCH 29.5 pg (25.7-33.7); MCHC 35.1 g/dl (32.0-35.9); MEAN CELL VOLUME 84.1 fl (80-96); MEAN PLT VOLUME 8.6 fl (7.5-11.1); NEUT % 82.6 % (42.8-82.8); PLATELET COUNT 314 10^3/uL (134-434); RBC 3.89 M/mm3 (4.00-5.60); RDW 20.5 % (11.9-15.9); WHITE BLOOD COUNT 13.7 K/mm3 (4.0-10.0)
[2022-12-30 21:58] LABS: VENOUS BASE EXCESS -1.1 mmol/L (-2-2); VENOUS O2 SATURATION 85.9 % (70-80); VENOUS PCO2 51.5 mmHg (38-52); VENOUS PH 7.316 (7.310-7.410)
[2022-12-30 22:00] LABS: INR 1.27 (0.83-1.09); PROTHROMBIN TIME (PATIENT) 14.7 SEC (9.7-13.0)
[2022-12-30 22:03] LABS: ACTIVATED PTT 31.7 SECONDS (25.2-36.5)
[2022-12-30 22:08] LABS: CALCIUM 9.6 mg/dL (8.5-10.1)
[2022-12-30 22:09] LABS: ALBUMIN 2.8 g/dl (3.4-5.0); MAGNESIUM 1.9 mg/dL (1.8-2.4)
[2022-12-30 22:13] LABS: BILIRUBIN,TOTAL 0.5 mg/dL (0.2-1); TOT PROT 6.8 g/dl (6.4-8.2)
[2022-12-30 22:39] LABS: ANISOCYTOSIS 2+; OVALOCYTE 2+
[2022-12-31 01:39] LABS: EPI CELLS 3 /uL (0-25.1); HYALINE CASTS 11 /uL (0-3.1); PH,URINE 5.5 (5.0-8.0); URINE APPEARANCE CLOUDY; URINE BACTERIA 1721 /uL (0-1359); URINE BILIRUBIN NEGATIVE (NEGATIVE); URINE COLOR YELLOW; URINE GLUCOSE (UA) NEGATIVE (NEGATIVE); URINE KETONE TRACE (NEGATIVE); URINE LEUK ESTERASE 2+ (NEGATIVE); URINE NITRITE NEGATIVE (NEGATIVE); URINE PROTEIN 2+ (NEGATIVE); URINE RBC 54 /uL (0-23.9); URINE UROBILINOGEN 0.2 mg/dL (0.2-1.0); URINE WBC 789 /uL (0-25.8)
[2022-12-31] MEDS ORDERED: CEFTRIAXONE 1 GM in DEXTROSE 5%-WATER - 50 ML IVPB ONE (02:52)
[2022-12-31] MEDS ORDERED: CEFTRIAXONE 1 GM/50 ML BAG ONE (03:12)
[2022-12-31] MEDS ORDERED: LACTATED RINGERS SOLUTION 1,000 ML/1,000 ML INFUS.BAG IV SCH (04:45)
[2022-12-31 08:14] LABS: BASO % 0.8 % (0-2.0); EOS % 0.2 % (0-4.5); HEMATOCRIT 34.9 % (35.4-49); HEMOGLOBIN 11.8 GM/dL (11.7-16.9); LYMPH % 7.1 % (8-40); MCH 28.8 pg (25.7-33.7); MCHC 33.7 g/dl (32.0-35.9); MEAN CELL VOLUME 85.6 fl (80-96); MEAN PLT VOLUME 8.4 fl (7.5-11.1); MONO % 10.1 % (3.8-10.2); NEUT % 81.8 % (42.8-82.8); PLATELET COUNT 322 10^3/uL (134-434); RBC 4.08 M/mm3 (4.00-5.60); RDW 20.9 % (11.9-15.9)
[2022-12-31 08:35] LABS: EPI CELLS 3 /uL (0-25.1); HYALINE CASTS 6 /uL (0-3.1); PH,URINE 5.5 (5.0-8.0); URINE APPEARANCE CLEAR; URINE BACTERIA 1880 /uL (0-1359); URINE BILIRUBIN NEGATIVE (NEGATIVE); URINE COLOR YELLOW; URINE GLUCOSE (UA) NEGATIVE (NEGATIVE); URINE KETONE NEGATIVE (NEGATIVE); URINE LEUK ESTERASE 2+ (NEGATIVE); URINE NITRITE NEGATIVE (NEGATIVE); URINE PROTEIN 2+ (NEGATIVE); URINE RBC 66 /uL (0-23.9); URINE WBC 753 /uL (0-25.8)
[2022-12-31 08:35] LABS: POTASSIUM 4.1 mmol/L (3.5-5.1)
[2022-12-31 08:37] LABS: ALBUMIN 2.8 g/dl (3.4-5.0); CALCIUM 10.2 mg/dL (8.5-10.1)
[2022-12-31 08:38] LABS: BLOOD UREA NITROGEN 18.4 mg/dL (7-18)
[2022-12-31 08:40] LABS: CREATININE 0.9 mg/dL (0.55-1.3); PHOSPHOROUS 3.3 mg/dL (2.5-4.9)
[2022-12-31 08:42] LABS: BILIRUBIN,TOTAL 0.6 mg/dL (0.2-1)
[2022-12-31] MEDS: FERROUS SO4 325 MG TABLET (FP) PO SCH (09:19)
[2022-12-31] MEDS: SERTRALINE HCL 25 MG TABLET (FP) PO SCH (09:19)
[2022-12-31] MEDS: ENOXAPARIN NA (PORCINE) 40 MG/0.4 ML DISP.SYRIN SQ SCH (09:19)
[2022-12-31] MEDS: ACETAMINOPHEN 325 MG TABLET (FP) PO PRN ×3 (10:42→20:02)
[2022-12-31] MEDS: BICALUTAMIDE 50 MG TABLET (FP) PO SCH (13:40)
[2022-12-31] MEDS ORDERED: SODIUM CHLORIDE 1,000 ML IV ONE (17:56)
[2022-12-31] MEDS: PIPERACILLIN/TAZOB 3.375 GM 3.375 GM in DEXTROSE 5%-WATER - 50 ML IVPB SCH (18:14)
[2022-12-31] MEDS ORDERED: VANCOMYCIN 1 GM/200 ML PREMIX BAG (RESTRICTED TO ID ONLY) IVPB SCH ×2 (18:45→22:00)
[2022-12-31] MEDS: TAMSULOSIN HCL 0.4 MG CAP PO SCH (21:11)
[2022-12-31] MEDS: metoPROLOL SUCCINATE 25 MG TAB.SR.24H (FP) PO SCH (21:12)
[2022-12-31] MEDS: ATORVASTATIN CA 80 MG TABLET (FP) PO SCH (21:12)
[2023-01-01] MEDS: PIPERACILLIN/TAZOB 3.375 GM 3.375 GM in DEXTROSE 5%-WATER - 50 ML IVPB SCH ×4 (01:00→19:20)
[2023-01-01] MEDS ORDERED: VANCOMYCIN 1 GM/200 ML PREMIX BAG (RESTRICTED TO ID ONLY) IVPB SCH (07:00)
[2023-01-01 08:39] LABS: BASO % 0.2 % (0-2.0); EOS % 0.1 % (0-4.5); HEMATOCRIT 31.6 % (35.4-49); HEMOGLOBIN 10.7 GM/dL (11.7-16.9); LYMPH % 6.2 % (8-40); MCH 28.8 pg (25.7-33.7); MCHC 33.9 g/dl (32.0-35.9); MEAN CELL VOLUME 84.9 fl (80-96); MEAN PLT VOLUME 8.1 fl (7.5-11.1); MONO % 8.4 % (3.8-10.2); NEUT % 85.1 % (42.8-82.8); PLATELET COUNT 310 10^3/uL (134-434); RBC 3.72 M/mm3 (4.00-5.60); RDW 20.5 % (11.9-15.9); WHITE BLOOD COUNT 12.4 K/mm3 (4.0-10.0)
[2023-01-01 08:42] LABS: INR 1.17 (0.83-1.09); PROTHROMBIN TIME (PATIENT) 13.5 SEC (9.7-13.0)
[2023-01-01 08:44] LABS: ACTIVATED PTT 29.9 SECONDS (25.2-36.5)
[2023-01-01 08:50] LABS: POTASSIUM 3.7 mmol/L (3.5-5.1)
[2023-01-01 08:59] LABS: CALCIUM 9.5 mg/dL (8.5-10.1)
[2023-01-01 09:00] LABS: ALBUMIN 2.4 g/dl (3.4-5.0); BLOOD UREA NITROGEN 17.5 mg/dL (7-18); MAGNESIUM 1.6 mg/dL (1.8-2.4)
[2023-01-01 09:03] LABS: CREATININE 0.9 mg/dL (0.55-1.3); PHOSPHOROUS 2.2 mg/dL (2.5-4.9)
[2023-01-01 09:04] LABS: BILIRUBIN,TOTAL 0.5 mg/dL (0.2-1)
[2023-01-01] MEDS: SERTRALINE HCL 25 MG TABLET (FP) PO SCH (09:54)
[2023-01-01] MEDS: ENOXAPARIN NA (PORCINE) 40 MG/0.4 ML DISP.SYRIN SQ SCH (09:54)
[2023-01-01] MEDS: FERROUS SO4 325 MG TABLET (FP) PO SCH (09:54)
[2023-01-01] MEDS: BICALUTAMIDE 50 MG TABLET (FP) PO SCH (09:57)
[2023-01-01] MEDS ORDERED: MAGNESIUM 2GM/50ML STERILE WATER IVPB IVPB ONE (10:00)
[2023-01-01] MEDS ORDERED: NAPH,MB-DB/K PH,MBDB POWDER PACKET PO ONE (10:00)
[2023-01-01] MEDS ORDERED: CEFTRIAXONE 1 GM in DEXTROSE 5%-WATER - 50 ML IVPB SCH (10:00)
[2023-01-01] MEDS: AMPICILLIN NA/SULBACTAM NA 3 GM in SODIUM CHLORIDE 100 ML IVPB SCH (17:38)
[2023-01-01] MEDS: VANCOMYCIN/WATER FOR INJ (PEG) 1,000 MG/200 ML BAG IVPB SCH (17:38)
[2023-01-01] MEDS: VANCOMYCIN 1 GM/200 ML PREMIX BAG (RESTRICTED TO ID ONLY) IVPB SCH (19:20)
[2023-01-01] MEDS: TAMSULOSIN HCL 0.4 MG CAP PO SCH (21:10)
[2023-01-01] MEDS: ATORVASTATIN CA 80 MG TABLET (FP) PO SCH (21:10)
[2023-01-01] MEDS: metoPROLOL SUCCINATE 25 MG TAB.SR.24H (FP) PO SCH (21:10)
[2023-01-02] MEDS: AMPICILLIN NA/SULBACTAM NA 3 GM in SODIUM CHLORIDE 100 ML IVPB SCH ×3 (01:31→17:21)
[2023-01-02] MEDS: VANCOMYCIN/WATER FOR INJ (PEG) 1,000 MG/200 ML BAG IVPB SCH ×2 (06:19→19:21)
[2023-01-02 07:49] LABS: HEMATOCRIT 29.8 % (35.4-49); HEMOGLOBIN 10.6 GM/dL (11.7-16.9); MCH 29.9 pg (25.7-33.7); MCHC 35.5 g/dl (32.0-35.9); MEAN CELL VOLUME 84.2 fl (80-96); MEAN PLT VOLUME 8.5 fl (7.5-11.1); PLATELET COUNT 307 10^3/uL (134-434); RBC 3.54 M/mm3 (4.00-5.60); RDW 20.8 % (11.9-15.9)
[2023-01-02 08:12] LABS: POTASSIUM 3.7 mmol/L (3.5-5.1)
[2023-01-02 08:19] LABS: BLOOD UREA NITROGEN 14.1 mg/dL (7-18)
[2023-01-02 08:20] LABS: ALBUMIN 2.2 g/dl (3.4-5.0); MAGNESIUM 2.2 mg/dL (1.8-2.4)
[2023-01-02 08:21] LABS: BILIRUBIN,TOTAL 0.3 mg/dL (0.2-1); TOT PROT 5.8 g/dl (6.4-8.2)
[2023-01-02 08:22] LABS: PHOSPHOROUS 2.9 mg/dL (2.5-4.9)
[2023-01-02 08:23] LABS: CREATININE 0.8 mg/dL (0.55-1.3)
[2023-01-02] MEDS: SERTRALINE HCL 25 MG TABLET (FP) PO SCH (09:23)
[2023-01-02] MEDS: ENOXAPARIN NA (PORCINE) 40 MG/0.4 ML DISP.SYRIN SQ SCH (09:23)
[2023-01-02] MEDS: BICALUTAMIDE 50 MG TABLET (FP) PO SCH (09:23)
[2023-01-02] MEDS: FERROUS SO4 325 MG TABLET (FP) PO SCH (09:23)
[2023-01-02] MEDS: ATORVASTATIN CA 80 MG TABLET (FP) PO SCH (21:22)
[2023-01-02] MEDS: TAMSULOSIN HCL 0.4 MG CAP PO SCH (21:22)
[2023-01-02] MEDS: metoPROLOL SUCCINATE 25 MG TAB.SR.24H (FP) PO SCH (21:22)
[2023-01-03] MEDS: AMPICILLIN NA/SULBACTAM NA 3 GM in SODIUM CHLORIDE 100 ML IVPB SCH ×3 (03:28→18:05)
[2023-01-03] MEDS: VANCOMYCIN/WATER FOR INJ (PEG) 1,000 MG/200 ML BAG IVPB SCH ×2 (05:37→18:06)
[2023-01-03 07:10] LABS: HEMATOCRIT 30.8 % (35.4-49); HEMOGLOBIN 10.8 GM/dL (11.7-16.9); MCH 29.6 pg (25.7-33.7); MCHC 34.9 g/dl (32.0-35.9); MEAN CELL VOLUME 84.7 fl (80-96); MEAN PLT VOLUME 8.6 fl (7.5-11.1); PLATELET COUNT 301 10^3/uL (134-434); RBC 3.64 M/mm3 (4.00-5.60); RDW 20.5 % (11.9-15.9); WHITE BLOOD COUNT 8.9 K/mm3 (4.0-10.0)
[2023-01-03 07:33] LABS: POTASSIUM 3.8 mmol/L (3.5-5.1)
[2023-01-03 07:39] LABS: ALBUMIN 2.2 g/dl (3.4-5.0); CALCIUM 9.1 mg/dL (8.5-10.1); MAGNESIUM 1.9 mg/dL (1.8-2.4)
[2023-01-03 07:41] LABS: BLOOD UREA NITROGEN 15.6 mg/dL (7-18)
[2023-01-03 07:42] LABS: CREATININE 0.8 mg/dL (0.55-1.3)
[2023-01-03 07:43] LABS: BILIRUBIN,TOTAL 0.3 mg/dL (0.2-1); PHOSPHOROUS 2.8 mg/dL (2.5-4.9)
[2023-01-03 07:44] LABS: TOT PROT 5.7 g/dl (6.4-8.2)
[2023-01-03] MEDS: ENOXAPARIN NA (PORCINE) 40 MG/0.4 ML DISP.SYRIN SQ SCH (09:35)
[2023-01-03] MEDS: SERTRALINE HCL 25 MG TABLET (FP) PO SCH (09:35)
[2023-01-03] MEDS: FERROUS SO4 325 MG TABLET (FP) PO SCH (09:35)
[2023-01-03] MEDS: BICALUTAMIDE 50 MG TABLET (FP) PO SCH (11:58)
[2023-01-03] MEDS ORDERED: ACETAMINOPHEN 325 MG TABLET (FP) PO PRN (13:11)
[2023-01-03] MEDS ORDERED: metoPROLOL SUCCINATE 25 MG TAB.SR.24H (FP) PO SCH (22:00)
[2023-01-03] MEDS ORDERED: ATORVASTATIN CA 80 MG TABLET (FP) PO SCH (22:00)
[2023-01-03] MEDS ORDERED: TAMSULOSIN HCL 0.4 MG CAP PO SCH (22:00)
[2023-01-04] MEDS: AMPICILLIN NA/SULBACTAM NA 3 GM in SODIUM CHLORIDE 100 ML IVPB SCH ×3 (02:00→17:08)
[2023-01-04] MEDS: VANCOMYCIN/WATER FOR INJ (PEG) 1,000 MG/200 ML BAG IVPB SCH ×2 (06:13→18:32)
[2023-01-04 08:09] LABS: HEMATOCRIT 30.1 % (35.4-49); HEMOGLOBIN 10.7 GM/dL (11.7-16.9); MCHC 35.5 g/dl (32.0-35.9); MEAN CELL VOLUME 84.4 fl (80-96); MEAN PLT VOLUME 8.4 fl (7.5-11.1); PLATELET COUNT 310 10^3/uL (134-434); RBC 3.56 M/mm3 (4.00-5.60); RDW 20.4 % (11.9-15.9); WHITE BLOOD COUNT 9.1 K/mm3 (4.0-10.0)
[2023-01-04 09:15] LABS: POTASSIUM 4.1 mmol/L (3.5-5.1)
[2023-01-04 09:18] LABS: ALBUMIN 2.2 g/dl (3.4-5.0)
[2023-01-04 09:19] LABS: BLOOD UREA NITROGEN 11.9 mg/dL (7-18); MAGNESIUM 1.9 mg/dL (1.8-2.4)
[2023-01-04 09:21] LABS: CREATININE 0.7 mg/dL (0.55-1.3); PHOSPHOROUS 2.5 mg/dL (2.5-4.9)
[2023-01-04 09:23] LABS: BILIRUBIN,TOTAL 0.5 mg/dL (0.2-1); TOT PROT 5.8 g/dl (6.4-8.2)
[2023-01-04 09:32] VITALS: RESP 18
[2023-01-04] MEDS ORDERED: ENOXAPARIN NA (PORCINE) 40 MG/0.4 ML DISP.SYRIN SQ SCH (10:00)
[2023-01-04] MEDS ORDERED: BICALUTAMIDE 50 MG TABLET (FP) PO SCH (10:00)
[2023-01-04] MEDS ORDERED: FERROUS SO4 325 MG TABLET (FP) PO SCH (10:00)
[2023-01-04] MEDS ORDERED: SERTRALINE HCL 25 MG TABLET (FP) PO SCH (10:00)
[2023-01-04 17:08] VITALS: BP 156/89; PULSE 77; TEMP 98.2
== END 2023-01-04 19:35 | DRG 698 ==
LOC: JER 20:42 → JERBED 12-31 03:15 → J4W 12-31 05:06 → J7W 01-03 11:26
PROVIDERS: ADMIT Internal Medicine; ATTEND Internal Medicine
DX: T83.518A Infection and inflammatory reaction due to other urinary catheter, initial encounter (principal); A41.89 Other specified sepsis; N39.0 Urinary tract infection, site not specified; I25.10 Atherosclerotic heart disease of native coronary artery without angina pectoris; E78.00 Pure hypercholesterolemia, unspecified; R55 Syncope and collapse; B95.2 Enterococcus as the cause of diseases classified elsewhere; Z85.46 Personal history of malignant neoplasm of prostate; Z85.51 Personal history of malignant neoplasm of bladder; Z86.73 Personal history of transient ischemic attack (TIA), and cerebral infarction without residual deficits; Z95.5 Presence of coronary angioplasty implant and graft; Y84.6 Urinary catheterization as the cause of abnormal reaction of the patient, or of later complication, without mention of misadventure at the time of the procedure; Y92.89 Other specified places as the place of occurrence of the external cause
CPT/HCPCS: 0241U-QW; 36415; 70450-TC; 71045-TC-FY; 72125-TC; 80053; 81003; 82550; 82553; 82803; 83605; 83735; 84100; 84484; 85025; 85027; 85610; 85730; 86850; 86870; 86900; 86901; 86902; 87040; 87077; 87086; 87186; 93005; 93010; 93306-TC; 97116-GP; 97162-GP; 99285-25; C9803-CS; G0480; U0003; U0005

== ENCOUNTER 2024-01-23 00:19 | Inpatient (IN) | payer OTHER ==
[2024-01-23 00:25] VITALS: BMI 24.3
[2024-01-23 01:05] LABS: HEMATOCRIT 34.3 % (35.4-49); HEMOGLOBIN 11.9 GM/dL (11.7-16.9); MCH 32.7 pg (25.7-33.7); MCHC 34.6 g/dl (32.0-35.9); MEAN CELL VOLUME 94.3 fl (80-96); PLATELET COUNT 183 10^3/uL (134-434); RBC 3.64 M/mm3 (4.00-5.60); VENOUS BASE EXCESS -1.4 mmol/L (-2-2); VENOUS PCO2 35.9 mmHg (38-52); VENOUS PH 7.418 (7.310-7.410)
[2024-01-23 01:10] LABS: INR 1.04 (0.83-1.09); PROTHROMBIN TIME (PATIENT) 11.9 SEC (9.7-13.0)
[2024-01-23 01:12] LABS: ACTIVATED PTT 28.7 SECONDS (25.2-36.5)
[2024-01-23 01:28] LABS: POTASSIUM 3.6 mmol/L (3.5-5.1)
[2024-01-23 01:31] LABS: CALCIUM 9.2 mg/dL (8.5-10.1)
[2024-01-23 01:32] LABS: ALBUMIN 3.2 g/dl (3.4-5.0); MAGNESIUM 1.7 mg/dL (1.8-2.4)
[2024-01-23 01:35] LABS: CREATININE 1.1 mg/dL (0.55-1.3)
[2024-01-23 01:37] LABS: BILIRUBIN,TOTAL 0.9 mg/dL (0.2-1)
[2024-01-23 02:15] LABS: EPI CELLS 1 /uL (0-25.1); HYALINE CASTS 2 /uL (0-3.1); URINE APPEARANCE CLEAR; URINE BACTERIA 8364 /uL (0-1359); URINE BILIRUBIN NEGATIVE (NEGATIVE); URINE COLOR YELLOW; URINE GLUCOSE (UA) NEGATIVE (NEGATIVE); URINE KETONE NEGATIVE (NEGATIVE); URINE LEUK ESTERASE 2+ (NEGATIVE); URINE NITRITE POSITIVE (NEGATIVE); URINE PROTEIN 2+ (NEGATIVE); URINE RBC 194 /uL (0-23.9); URINE UROBILINOGEN 0.2 mg/dL (0.2-1.0); URINE WBC 351 /uL (0-25.8)
[2024-01-23] MEDS ORDERED: ASPIRIN 81 MG CHEWABLE TABLETS ONE (02:23)
[2024-01-23] MEDS: ASPIRIN 81 MG CHEWABLE TABLETS PO ONE (02:24)
[2024-01-23] MEDS ORDERED: PIPERACILLIN/TAZOB 4.5 GM 4.5 GM/100 ML BAG IVPB ONE (02:35)
[2024-01-23] MEDS: PIPERACILLIN/TAZOB 4.5 GM 4.5 GM in DEXTROSE 5%-WATER 100 ML IVPB ONE (02:40)
[2024-01-23 03:04] LABS: ANISOCYTOSIS 0; MACROCYTOSIS 0; ROULEAU 1+
[2024-01-23] MEDS: VANCOMYCIN HCL 1,500 MG in DEXTROSE 5%-WATER - 500 ML IVPB ONE (03:40)
[2024-01-23] MEDS ORDERED: HEPARIN NA (PORCINE) 5,000 UNITS/ML 1ML VIAL IVPUSH PRN ×2 (03:46)
[2024-01-23] MEDS: HEPARIN - 25,000 UNIT in SODIUM CHLORIDE 495 ML IV SCH (04:37)
[2024-01-23] MEDS ORDERED: HEPARIN NA (PORCINE) 5,000 UNITS/ML 1ML VIAL ONE (05:03)
[2024-01-23] MEDS: HEPARIN NA (PORCINE) 5,000 UNITS/ML 1ML VIAL IVPUSH ONE (05:04)
[2024-01-23] MEDS: MAGNESIUM SULF 50% (8.12 MEQ/2 ML-1 GM VIAL) IVPB ONE (07:15)
[2024-01-23 07:18] LABS: HEMATOCRIT 31.9 % (35.4-49); HEMOGLOBIN 11.2 GM/dL (11.7-16.9); MCH 33.4 pg (25.7-33.7); MCHC 35.1 g/dl (32.0-35.9); MEAN CELL VOLUME 95.1 fl (80-96); MEAN PLT VOLUME 8.8 fl (7.5-11.1); PLATELET COUNT 201 10^3/uL (134-434); RBC 3.36 M/mm3 (4.00-5.60); RDW 13.2 % (11.9-15.9); WHITE BLOOD COUNT 11.8 K/mm3 (4.0-10.0)
[2024-01-23 07:41] LABS: POTASSIUM 4.1 mmol/L (3.5-5.1)
[2024-01-23 07:46] LABS: CALCIUM 8.6 mg/dL (8.5-10.1)
[2024-01-23 07:47] LABS: ALBUMIN 2.8 g/dl (3.4-5.0); BLOOD UREA NITROGEN 20.9 mg/dL (7-18); MAGNESIUM 1.8 mg/dL (1.8-2.4)
[2024-01-23 07:50] LABS: PHOSPHOROUS 3.6 mg/dL (2.5-4.9)
[2024-01-23 07:51] LABS: BILIRUBIN,TOTAL 0.8 mg/dL (0.2-1); TOT PROT 6.1 g/dl (6.4-8.2)
[2024-01-23] MEDS: ASPIRIN COATED 81 MG TABLET.EC PO SCH (09:51)
[2024-01-23] MEDS: FERROUS SO4 325 MG TABLET (FP) PO SCH (09:51)
[2024-01-23] MEDS: metoPROLOL SUCCINATE 25 MG TAB.SR.24H (FP) PO SCH (09:51)
[2024-01-23] MEDS: FINASTERIDE 5 MG TABLET (FP) PO SCH (09:51)
[2024-01-23] MEDS: SERTRALINE HCL 25 MG TABLET (FP) PO SCH (09:51)
[2024-01-23] MEDS ORDERED: PIPERACILLIN/TAZOB 3.375 GM 3.375 GM in DEXTROSE 5%-WATER - 50 ML IVPB SCH (10:47)
[2024-01-23] MEDS: VANCOMYCIN 1,000 MG in DEXTROSE 5%-WATER - 250 ML IVPB SCH (11:15)
[2024-01-23] MEDS: PIPERACILLIN/TAZOB 3.375 GM 3.375 GM in DEXTROSE 5%-WATER - 50 ML IVPB SCH (11:16)
[2024-01-23] MEDS: PIPERACILLIN/TAZOB 3.375 GM 3.375 GM/50 ML BAG IVPB SCH (11:16)
[2024-01-23] MEDS: CEFTRIAXONE 1 GM in DEXTROSE 5%-WATER - 50 ML IVPB SCH (12:11)
[2024-01-23] MEDS: BICALUTAMIDE 50 MG TABLET (FP) PO SCH (15:04)
[2024-01-23] MEDS: FUROSEMIDE 20 MG TABLET (FP) PO ONE (16:39)
[2024-01-23] MEDS: ATORVASTATIN CA 80 MG TABLET (FP) PO SCH (21:53)
[2024-01-23] MEDS: TAMSULOSIN HCL 0.4 MG CAP PO SCH (21:53)
[2024-01-24] MEDS ORDERED: VANCOMYCIN/WATER FOR INJ (PEG) 1,000 MG/250 ML BAG IVPB SCH (06:00)
[2024-01-24 08:05] LABS: POTASSIUM 3.5 mmol/L (3.5-5.1)
[2024-01-24 08:07] LABS: ALBUMIN 2.9 g/dl (3.4-5.0); BLOOD UREA NITROGEN 16.7 mg/dL (7-18); CALCIUM 9.2 mg/dL (8.5-10.1); MAGNESIUM 2.1 mg/dL (1.8-2.4)
[2024-01-24 08:10] LABS: CREATININE 0.8 mg/dL (0.55-1.3); PHOSPHOROUS 2.6 mg/dL (2.5-4.9)
[2024-01-24 08:12] LABS: BILIRUBIN,TOTAL 0.6 mg/dL (0.2-1); TOT PROT 5.8 g/dl (6.4-8.2)
[2024-01-24 09:40] LABS: HEMATOCRIT 34.4 % (35.4-49); HEMOGLOBIN 11.8 GM/dL (11.7-16.9); MCH 32.7 pg (25.7-33.7); MCHC 34.3 g/dl (32.0-35.9); MEAN CELL VOLUME 95.3 fl (80-96); MEAN PLT VOLUME 8.6 fl (7.5-11.1); PLATELET COUNT 191 10^3/uL (134-434); RBC 3.61 M/mm3 (4.00-5.60); RDW 13.3 % (11.9-15.9)
[2024-01-24 10:21] LABS: ANISOCYTOSIS 0; MACROCYTOSIS 0
[2024-01-24] MEDS: POTASSIUM CHLORIDE ORAL LIQUID 20 MEQ/15 ML PO ONE (16:45)
[2024-01-25 07:58] LABS: POTASSIUM 4.3 mmol/L (3.5-5.1)
[2024-01-25 08:01] LABS: BLOOD UREA NITROGEN 21.4 mg/dL (7-18); CALCIUM 9.4 mg/dL (8.5-10.1)
[2024-01-25 08:04] LABS: CREATININE 0.9 mg/dL (0.55-1.3)
[2024-01-26 08:56] LABS: POTASSIUM 4.1 mmol/L (3.5-5.1)
[2024-01-26 09:04] LABS: BLOOD UREA NITROGEN 21.3 mg/dL (7-18); CALCIUM 9.2 mg/dL (8.5-10.1); MAGNESIUM 2.1 mg/dL (1.8-2.4)
[2024-01-26 09:08] LABS: CREATININE 0.9 mg/dL (0.55-1.3)
[2024-01-27 06:39] VITALS: BP 138/82; PULSE 83; RESP 17; TEMP 98.1
== END 2024-01-27 18:31 | disposition home or self-care (01) | DRG 280 ==
LOC: JER 00:19 → JERBED 02:33 → J4W 06:29
PROVIDERS: ADMIT Internal Medicine; ATTEND Internal Medicine
DX: I21.4 Non-ST elevation (NSTEMI) myocardial infarction (principal); I50.33 Acute on chronic diastolic (congestive) heart failure; I11.0 Hypertensive heart disease with heart failure; F32.A Depression, unspecified; I25.10 Atherosclerotic heart disease of native coronary artery without angina pectoris; N40.0 Benign prostatic hyperplasia without lower urinary tract symptoms; R79.89 Other specified abnormal findings of blood chemistry; E83.42 Hypomagnesemia; D63.8 Anemia in other chronic diseases classified elsewhere; E78.5 Hyperlipidemia, unspecified; Z85.46 Personal history of malignant neoplasm of prostate; Z85.51 Personal history of malignant neoplasm of bladder; Z86.73 Personal history of transient ischemic attack (TIA), and cerebral infarction without residual deficits; Z95.5 Presence of coronary angioplasty implant and graft
CPT/HCPCS: 0241U-QW; 36415; 71045-TC-FY; 80048; 80053; 80061; 81003; 82550; 82728; 82803; 83540; 83550; 83605; 83735; 83880; 84100; 84443; 84484; 85025; 85027; 85610; 85730; 86850; 86900; 86901; 87040; 87086; 93005; 93010; 93306-TC; 97116-GP; 97162-GP; 99285-25; J1644